=== PATIENT | female | born 1995 | race Caucasian/White ===

== ENCOUNTER 2021-04-10 12:24 | Outpatient (CLI) | payer OTHER, SELFPAY ==
--- NOTE | 2021-04-12 11:48 | WPDHOLTEREM ---
Holter/Event Monitor Holter/Event Monitor Date of procedure: 04/10/21 Holter/Event Procedure: 24 Hr Holter Monitor Indications: Palpitations Conclusion: 1. 24 hour holter monitor on 04/10/21. 2. Underlying rhythm is sinus rhythm with sinus arrhythmia. HR range 39-182 bpm; average HR 88 bpm. 3. There are 583 premature supraventricular complexes and 79 supraventricular couplets. No supraventricular tachycardia. 4. There are 6 premature ventricular complexes and 2 ventricular couplets. No ventricular tachycardia. 5. No sinoatrial or atrioventricular blocks. No significant pauses greater than 2 seconds. 6. Patient reports symptoms of feeling weird , off , and heart felt heavy which demonstrate sinus rhythm, HR range 111-167 bpm.
== END 2021-04-10 12:25 | disposition home or self-care (01) ==
LOC: CHSCARD 12:30
PROVIDERS: PCP Family Medicine; Visit Provider Nurse Practitioner
DX: R00.2 Palpitations (principal)
CPT/HCPCS: 93225; 93226

== ENCOUNTER 2021-05-14 21:56 | Emergency (ER) | payer OTHER, SELFPAY ==
--- NOTE | ~2021-05-14 | CT_ITS ---
EXAMINATION: CT abdomen pelvis w con EXAM DATE: 05/15/2021 01:37 INDICATION: bilateral flank pain, hx of UTI . TECHNIQUE: Spiral CT of the abdomen and pelvis was performed following intravenous injection of 100 m L Omnipaque 350. Axial, coronal and sagittal images of the abdomen and pelvis were reviewed. The do se-length product (DLP) for this examination was 275.00 mGy-cm. The exposure was tailored according to patient size (auto mA exposure control), and iterative reconstruction (ASIR) was used as additiona l dose reduction technique. There is no prior study for comparison. FINDINGS: The liver, spleen, adrenal glands and pancreas are unremarkable. Gallbladder is unremarkab le. No biliary obstruction. Portal and splenic veins are patent. Kidneys enhance symmetrically. T here is no hydronephrosis. The uterus is unremarkable. The bladder is unremarkable. There is no retroperitoneal or pelvic lymphadenopathy. The appendix is normal. The stomach and small bowel are unremarkable. There is expected amount of c olonic stool. No free intraperitoneal gas. The heart is normal in size. There are no pericardial or pleural effusions. The lung bases are unremarkable. There are no osteoblastic or osteolytic les ions identified. 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 IMPRESSION: 1. No acute intra-abdominal findings. 2. L5 spondylolysis. Reviewed, dictated and finalized at location B.
[2021-05-14 22:21] VITALS: BP 123/81; PULSE 82; RESP 18; TEMP 36.6; O2SAT 100
[2021-05-14 23:00] LABS: Add Urine Microscopic? YES; Appearance Urine Clear (Clear); Bilirubin Urine Negative (Negative); Blood Urine Negative (Negative); Color Urine Yellow (Yellow); Glucose Urine UA Negative (Negative); Ketones Urine Negative (Negative); Leukocyte Esterase Ur 2+ LEU/UL (Negative); Mucus Urine Rare /lpf; Nitrate Urine Negative (Negative); Protein Urine Negative (Negative); Specific Grav Ur 1.017 (1.001-1.035); Squamous Epithelial Cell Urine Occasional /hpf (Few); Urobilinogen Urine Negative mg/dL (<2.0); WBC Urine 16-20 /hpf
[2021-05-14 23:37] VITALS: BP 129/93; PULSE 81; RESP 13; O2SAT 100
[2021-05-14 23:46] VITALS: BP 117/81; PULSE 72; RESP 16; O2SAT 100
[2021-05-15] VITALS (8 sets, daily range): BP systolic 104–119; BP diastolic 60–80; PULSE 65–85; RESP 15–21; O2SAT 100
--- NOTE | 2021-05-15 00:35 | ED.FEMALEGU ---
HPI - Female Genitourinary General Chief complaint: Urogenital-Female Stated complaint: [employer] issues - bacterial infection Time Seen by Provider: 05/15/21 00:34 Source: patient Mode of arrival: ambulatory Limitations: no limitations History of Present Illness HPI Narrative: Patient is a 26-year-old female with a history of recurrent urinary tract infections who presents for evaluation of dysuria, flank pain. Patient states that she has been on several different antibiotics over the course of 3 months, for which she has been referred to [facility]. Patient has yet to have her follow-up appointment after the urologist has canceled 3 times per the patient. Patient states that she continues to have dysuria, hematuria as well as a white substance in her urine. She reports some urinary frequency and bilateral flank pain which is greater on the left than on the right. Pain is dull, aching in nature. Patient denies fever or chills this evening. No nausea or vomiting. No vaginal bleeding or discharge. No history of sexually transmitted infection although she is sexually active. Patient states she has not had a CT scan at this point in her medical work-up, states that her primary care physician will no longer prescribe her any antibiotics and thus has referred her to urology. Due to increased pain in appearance of urine, patient was prompted to come to the emergency department. Related Data Home Medications Medication Instructions Recorded Confirmed lorazepam [Ativan] 0.5 mg PO DAILY PRN 05/14/21 05/14/21 Allergies Allergy/AdvReac Type Severity Reaction Status Date / Time No Known Allergies Allergy Unverified 05/14/21 23:37 Review of Systems Review of Systems: CONSTITUTIONAL: Denies fever, chills, or sweats. EYES: Denies visual changes, redness, or discharge. ENT: Denies rhinorrhea, congestion, sore throat, or otalgia. CARDIOVASCULAR: Denies chest pain, palpitations, or edema. RESPIRATORY: Denies cough or dyspnea. GASTROINTESTINAL: Reports lower abdominal pain without nausea or vomiting GENITOURINARY: Reports dysuria, hematuria SKIN: Denies rash or itching. MUSCULOSKELETAL: Reports bilateral flank pain, denies joint pain, or myalgia. NEUROLOGIC: Denies headache, numbness, or weakness. [facility] Past Medical History Medical History (Updated 05/15/21 @ 02:59 by Kaylie Alvarez MD) Urinary tract infection Social History Social History (Updated 05/15/21 @ 01:17 by Kaylie Alvarez MD) Alcohol intake: never Substance use: never Living arrangements: with family Gender identity (if verbalized by the patient): Female Exam Narrative: GENERAL: Awake, alert, conversant HEAD: Normocephalic, atraumatic. EYES: PERRLA and EOMI. ENT: Nares clear, no rhinorrhea or epistaxis. Mucous membranes moist. NECK: Supple. CHEST: No respiratory distress, breathing even and non labored HEART: Regular rate, sinus rhythm ABDOMEN:Non distended, no suprapubic tenderness on exam, bilateral CVA tenderness on exam EXTREMITIES: Normal range of motion. No edema. SKIN: Warm, dry, no rash. NEURO:No focal deficits. Alert and oriented x3 Course Vital Signs Vital signs: Vital Signs Temperature 36.6 C 05/14/21 22:21 Pulse Rate 82 05/14/21 22:21 Respiratory Rate 18 05/14/21 22:21 Blood Pressure 123/81 05/14/21 22:21 Pulse Oximetry 100 05/14/21 22:21 Temperature 36.6 C 05/14/21 22:21 Pulse Rate 81 05/15/21 02:16 Respiratory Rate 15 05/15/21 02:16 Blood Pressure 108/75 05/15/21 02:16 Pulse Oximetry 100 05/15/21 02:16 MDM - Female Genitourinary MDM Narrative Medical decision making narrative: Patient presenting for evaluation of dysuria, bilateral flank pain. At the time of assessment, ABCs are intact and vital signs are stable. Physical exam with mild suprapubic tenderness with flank tenderness on exam. Patient does not have any reported vaginal dis
[2021-05-15] MEDS: SODIUM CHLORIDE 0.9% IV 1,000 ML 999 ML IV CONT (00:56)
[2021-05-15] MEDS: ONDANSETRON INJ 4 MG/2 ML VIAL IV PUSH (00:57)
--- NOTE | 2021-05-15 01:26 | PC.NURSE ---
Pt to imaging at this time.
[2021-05-15 01:27] LABS: Basophils Absolute Auto 0.1 K/mm3 (0.0-0.1); Basophils Percent Auto 0.8 % (0.2-1.2); Eosinophils Absolute Auto 0.2 K/mm3 (0-0.3); Eosinophils Percent Auto 1.9 % (0-4.4); Hematocrit 41.5 % (37.0-47.0); Hemoglobin 13.4 g/dL (12.0-15.0); Immature Granulocyte Absolute 0.03 K/mm3 (0.00-0.031); Immature Granulocyte Percent A 0.3 % (0-0.5); Lymphocytes Absolute Auto 3.35 K/mm3 (0.9-3.2); Lymphocytes Percent Auto 33.9 % (18.3-44.2); Mean Corpuscular HGB Conc 32.3 g/dl (32-36); Mean Corpuscular Hemoglobin 28.9 pg (26-34); Mean Corpuscular Volume 89.4 fl (80-100); Mean Platelet Volume 9.8 fl (7.4-10.4); Monocytes Absolute Auto 0.6 K/mm3 (0.1-0.6); Monocytes Percent Auto 6.3 % (2.6-8.5); Neutrophils Absolute Auto 5.6 K/mm3 (1.3-6.7); Neutrophils Percent Auto 56.8 % (45.5-73.1); Platelet Count Result 296 k/mm3 (150-375); Red Blood Count 4.64 M/mm3 (4.2-5.4); Red Cell Distribution Width 13.9 % (11.5-14.5); White Blood Count 9.9 K/mm3 (4.5-10.0)
[2021-05-15 01:34] LABS: Estimated CRCL calculation 88 ml/min; Estimated Glomerular Filt Rate > 60
[2021-05-15 01:39] LABS: Alanine Aminotransferase 17 U/L (4-35); Albumin Level 4.3 g/dL (3.5-5.1); Alkaline Phosphatase 69 U/L (38-126); Anion Gap 9 mmol/L (8-16); Aspartate Amino Transferase 22 U/L (14-36); Bilirubin,Total 0.7 mg/dL (0.2-1.3); Blood Urea Nitrogen 11 mg/dL (7-17); Calcium 9.3 mg/dL (8.4-10.2); Carbon Dioxide 27 mmol/L (22-30); Chloride 103 mmol/L (98-107); Estimated CRCL calculation 88 ml/min; Estimated Glomerular Filt Rate > 60; Glucose 90 mg/dL (65-110); Potassium 3.2 mmol/L (3.4-5.0); Sodium 139 mmol/L (137-145)
[2021-05-15] MEDS: MORPHINE SULFATE (*CRX) 4 MG/ML INJ IV PUSH (02:08)
== END 2021-05-15 03:14 | disposition home or self-care (01) ==
PROVIDERS: Emergency Medicine; Emergency Provider Emergency Medicine; PCP Family Medicine
DX: N39.0 Urinary tract infection, site not specified (principal); Z87.440 Personal history of urinary (tract) infections
CPT/HCPCS: 36415; 74177; 80053; 81001; 81025; 85025; 87086; 96361; 96374; 96375; 99284; J2270; J2405; J7030; Q9967

== ENCOUNTER 2021-08-24 20:30 | Emergency (ER) | payer OTHER, SELFPAY ==
--- NOTE | ~2021-08-24 | US_ITS ---
EXAMINATION: US OB <=14 wk fetus w TV DATE: 08/25/2021 01:53 INDICATION: Vaginal bleeding during the first trimester TECHNIQUE: Real-time pelvic ultrasound utilizing both a transvaginal and transabdominal probe was pe rformed. The interpreting radiologist was not present for the study. COMPARISON: None. FINDINGS: The uterus measures 8.6 x 4.9 x 4.0 cm. The endometrial complex measures up to 9 mm in thickness. No evident endometrial fluid or gestational sac. The right ovary measures 3.4 x 2.9 x 2.2 cm. The left ovary measures 2.7 x 1.5 x 1.4 cm. And contains a 1.4 cm anechoic cyst/follicle. No other abnormal adnexal masses identified. There is no free fluid in the pelvis. IMPRESSION: 1. No evident endometrial fluid or gestational sac. In the setting of a positive beta hCG the differe ntial would include early, failed or ectopic although no abnormal adnexal masses are identi fied to more specifically suggest the latter. Reviewed, dictated and finalized at location . ICATION SUPPORT IMPRESSION: 1. No evident endometrial fluid or gestational sac. In the setting of a positiv e beta hCG the differential would include early, failed or ectopic al though no abnormal adnexal masses are identified to more specifically suggest t he latter.
[2021-08-24 20:58] VITALS: BP 129/71; PULSE 72; RESP 17; TEMP 36.7; O2SAT 100
[2021-08-25 00:12] VITALS: BP 115/73; PULSE 75; RESP 16; O2SAT 100
[2021-08-25 01:23] LABS: Basophils Absolute Auto 0.1 K/mm3 (0.0-0.1); Basophils Percent Auto 0.8 % (0.2-1.2); Eosinophils Absolute Auto 0.4 K/mm3 (0-0.3); Eosinophils Percent Auto 3.1 % (0-4.4); Hematocrit 42.3 % (37.0-47.0); Hemoglobin 13.9 g/dL (12.0-15.0); Immature Granulocyte Absolute 0.02 K/mm3 (0.00-0.031); Immature Granulocyte Percent A 0.2 % (0-0.5); Lymphocytes Absolute Auto 3.91 K/mm3 (0.9-3.2); Lymphocytes Percent Auto 33.8 % (18.3-44.2); Mean Corpuscular HGB Conc 32.9 g/dl (32-36); Mean Corpuscular Hemoglobin 29.3 pg (26-34); Mean Corpuscular Volume 89.2 fl (80-100); Mean Platelet Volume 9.2 fl (7.4-10.4); Monocytes Absolute Auto 0.8 K/mm3 (0.1-0.6); Monocytes Percent Auto 6.8 % (2.6-8.5); Neutrophils Absolute Auto 6.4 K/mm3 (1.3-6.7); Neutrophils Percent Auto 55.3 % (45.5-73.1); Platelet Count Result 342 k/mm3 (150-375); Red Blood Count 4.74 M/mm3 (4.2-5.4); Red Cell Distribution Width 13.4 % (11.5-14.5); White Blood Count 11.6 K/mm3 (4.5-10.0)
[2021-08-25 01:41] LABS: Alanine Aminotransferase 18 U/L (4-35); Albumin Level 4.3 g/dL (3.5-5.1); Alkaline Phosphatase 70 U/L (38-126); Anion Gap 1 mmol/L (8-16); Aspartate Amino Transferase 23 U/L (14-36); Bilirubin,Total 0.4 mg/dL (0.2-1.3); Blood Urea Nitrogen 11 mg/dL (7-17); Calcium 9.3 mg/dL (8.4-10.2); Carbon Dioxide 29 mmol/L (22-30); Chloride 104 mmol/L (98-107); Estimated CRCL calculation 88 ml/min; Estimated Glomerular Filt Rate > 60; Glucose 88 mg/dL (65-110); Potassium 3.8 mmol/L (3.4-5.0); Sodium 134 mmol/L (137-145)
[2021-08-25 02:22] LABS: Beta HCG Quantitative 88.97 mIU/ML
[2021-08-25 02:31] LABS: Add Urine Microscopic? YES; Appearance Urine Clear (Clear); Bilirubin Urine Negative (Negative); Blood Urine 2+ (Negative); Color Urine Yellow (Yellow); Glucose Urine UA Negative (Negative); Ketones Urine Negative (Negative); Leukocyte Esterase Ur Trace LEU/UL (Negative); Mucus Urine Rare /lpf; Nitrate Urine Negative (Negative); Protein Urine Negative (Negative); RBC Urine >75 /hpf (0-2); Specific Grav Ur 1.016 (1.001-1.035); Squamous Epithelial Cell Urine Occasional /hpf (Few); Urobilinogen Urine Negative mg/dL (<2.0); WBC Urine 21-30 /hpf
--- NOTE | 2021-08-25 02:40 | PC.NURSE ---
ERP DR MIRANDA AND SOO FITZPATRICK AT BEDSIDE FOR PELVIC EXAMINATION.
--- NOTE | 2021-08-25 02:42 | ED.FEMALEGU ---
HPI - Female Genitourinary General Chief complaint: Vaginal Bleeding Stated complaint: few weeks and bleeding Time Seen by Provider: 08/25/21 00:07 History of Present Illness HPI Narrative: Patient is a 26-year-old female who presents ER with vaginal bleeding. Patient is a G3, P1 who presents the ER with LMP of July 01/2021. Had a positive test last week. Began developing bleeding from her vagina prior to arrival. She reports she is soaked through 2 pads in the last 4 hours. She has not had a dating ultrasound. She has follow-up scheduled with a dairy equipment repairer in [place]. Related Data Home Medications Medication Instructions Recorded Confirmed lorazepam [Ativan] 0.5 mg PO DAILY PRN 05/14/21 05/14/21 Allergies Allergy/AdvReac Type Severity Reaction Status Date / Time amoxicillin AdvReac Hives Verified 08/25/21 00:16 Review of Systems Review of Systems: All systems reviewed & are unremarkable except as noted in HPI and below Constitutional: Constitutional: Denies chills and Denies fatigue Gastrointestinal: Gastrointestinal: Denies abdominal pain, Denies nausea and Denies vomiting Genitourinary: Genitourinary: Reports abnormal vaginal bleeding, Reports nocturia, Reports dysuria (Reports chronic UTI for which she takes antibiotics.) and Denies vaginal discharge Neurologic: Denies syncope, Denies focal weakness and Denies numbness PMFSH Past Medical History Medical History (Updated 08/25/21 @ 03:25 by Baldomero Zelaya MD) Urinary tract infection Surgical History Surgical History (Updated 08/25/21 @ 03:25 by Baldomero Zelaya MD) No pertinent past surgical history Social History Social History (Updated 05/15/21 @ 01:17 by Kaylie Alvarez MD) Alcohol intake: never Substance use: never Gender identity (if verbalized by the patient): Female Exam Narrative: GENERAL: Well-appearing, well-nourished, and in no acute distress. HEAD: Normocephalic, atraumatic. CHEST: Clear to auscultation. No respiratory distress. HEART: Regular rate and rhythm. Normal peripheral pulses. ABDOMEN: Soft, nontender, nondistended. Spine: Normal external genitalia, speculum exam with small amount of dark blood near the cervix. Cervix closed and nonerythematous/tender. No discharge noted. EXTREMITIES: Normal range of motion. No edema. SKIN: Warm, dry, no rash. NEURO: No focal deficits.Normal mood and affect. Course Course Emergency Course: Patient informed results. Discussed case with Dr. Dumont. Patient should follow-up in 2 days to have repeat blood work. She may also follow-up with her primary polymer specialist if she wishes. Discussed bleeding precautions with the patient. Blood type a positive and does not require RhoGam. Vital Signs Vital signs: Vital Signs Temperature 98.1 F 08/24/21 20:58 Pulse Rate 72 08/24/21 20:58 Respiratory Rate 17 08/24/21 20:58 Blood Pressure 129/71 08/24/21 20:58 Pulse Oximetry 100 08/24/21 20:58 Temperature 98.1 F 08/24/21 20:58 Pulse Rate 75 08/25/21 00:12 Respiratory Rate 16 08/25/21 00:12 Blood Pressure 115/73 08/25/21 00:12 Pulse Oximetry 100 08/25/21 00:12 MDM - Female Genitourinary Lab Data Result diagrams: 08/25/21 01:16 08/25/21 01:16 Labs: Lab Results 08/25/21 08/25/21 08/25/21 Range/Units 01:16 01:16 01:16 WBC 11.6 H (4.5-10.0) K/mm3 RBC 4.74 (4.2-5.4) M/mm3 Hgb 13.9 (12.0-15.0) g/dL Hct 42.3 (37.0-47.0) % MCV 89.2 (80-100) fl MCH 29.3 (26-34) pg MCHC 32.9 (32-36) g/dl RDW 13.4 (11.5-14.5) % Plt Count 342 (150-375) k/mm3 MPV 9.2 (7.4-10.4) fl Immature Gran % (Auto) 0.2 (0-0.5) % Neut % (Auto) 55.3 (45.5-73.1) % Lymph % (Auto) 33.8 (18.3-44.2) % [place] % (Auto) 6.8 (2.6-8.5) % Eos % (Auto) 3.1 (0-4.4) % Baso % (Auto) 0.8 (0.2-1.2) % Lymph # (Auto) 3.91 H (0.9-3.2) K/mm3 [place] # (A
[2021-08-25 03:54] VITALS: BP 116/87; PULSE 85; RESP 18; O2SAT 97
== END 2021-08-25 03:53 | disposition home or self-care (01) ==
PROVIDERS: Emergency Provider Emergency Medicine; PCP Family Medicine
DX: O20.0 Threatened abortion (principal); Z3A.01 Less than 8 weeks gestation of pregnancy; Z87.440 Personal history of urinary (tract) infections
CPT/HCPCS: 36415; 76801; 76817; 80053; 81001; 84702; 85025; 85461; 87086; 87088; 99284

== ENCOUNTER 2022-05-21 16:06 | Emergency (ER) | payer OTHER, SELFPAY ==
[2022-05-21 16:15] VITALS: BP 108/61; PULSE 95; RESP 18; O2SAT 98
[2022-05-21 16:18] VITALS: TEMP 36.7
[2022-05-21 16:30] VITALS: BP 108/61; PULSE 95; RESP 20; TEMP 36.6; O2SAT 98
--- NOTE | 2022-05-21 16:56 | ED.ABDPAIN ---
HPI - Abdominal Pain General Chief Complaint: Vaginal Bleeding Stated Complaint: 9 1/2 weeks and spotting Time Seen by Provider: 05/21/22 16:08 Source: patient and RN notes reviewed Mode of arrival: ambulatory Limitations: no limitations History of Present Illness MD elicited complaint: other (91/2 weeks with minimal vaginal spotting x today. ) Pertinent past history: other (prior mis-carriages.) Onset (ago): hour(s) (8) Pain Consistency: other (pain-free with no abdominal or uterine cramping) Location: pelvis Severity: mild Pain scale (0-10): 0 Radiation: none Migration to: no migration Exacerbating factors: nothing Relieving factors: nothing Associated symptoms: denies other symptoms Related Data Patient : Yes Home Medications Medication Instructions Recorded Confirmed lorazepam 0.5 mg tablet (Ativan) 0.5 mg PO DAILY PRN Anxiety 05/14/21 05/14/21 Allergies Allergy/AdvReac Type Severity Reaction Status Date / Time amoxicillin AdvReac Hives Verified 08/25/21 00:16 Review of Systems Review of Systems: All systems reviewed & are unremarkable except as noted in HPI and below Constitutional: Constitutional: Reports no additional constitutional complaints Eyes: Eyes: Reports no additional eye complaints ENT: Reports system reviewed and no additional complaints, except as documented Cardiovascular: Cardiovascular: Reports no additional cardiovascular complaints Respiratory: Respiratory: Reports no additional respiratory complaints Gastrointestinal: Gastrointestinal: Reports no additional gastrointestinal complaints Genitourinary: Genitourinary: Reports no additional female genitourinary complaints Comments: minimal vaginal spotting at 91/2 weeks . Musculoskeletal: Musculoskeletal: Reports no additional musculoskeletal complaints Integumentary/Breasts: Skin/Breast: Reports system reviewed and no additional complaints, except as docu Neurologic: Reports system reviewed and no additional complaints, except as documented Psychiatric: Psychiatric: Reports no additional psychiatric complaints Endocrine: Endocrine: Reports no additional endocrine complaints Hematologic/Lymphatic: Hematologic/Lymphatic: Reports no additional hematologic/lymphatic complaints Allergic/Immunologic: Allergic/Immunologic: Reports no additional allergic/immunologic complaints [facility] Past Medical History Medical History (Updated 05/21/22 @ 17:24 by Edel Ferrari MD) Threatened in first trimester Urinary tract infection Surgical History Surgical History (Updated 08/25/21 @ 03:25 by Baldomero Zelaya MD) No pertinent past surgical history Social History Social History (Updated 05/15/21 @ 01:17 by Kaylie Alvarez MD) Alcohol intake: never Substance use: never Gender identity (if verbalized by the patient): Female Exam Const: General: healthy appearing and no acute distress Nutritional Appearance: well nourished Orientation/consciousness: patient oriented x3 Limitations: no limitations HENMT: Head: normal to inspection Ears: external ears normal, TM's normal bilaterally and EAC's normal General nose exam: Normal external nose present and Normal nares present Face and sinus: normal facial exam and sinuses nontender Mouth: Yes Normal oral and palatal mucosa present and Yes moist mucous membranes Teeth and gingiva: dentition normal Throat: posterior oropharynx normal Eyes: Conjunctivae: conjunctivae normal Pupils: Equal, round and reactive pupils present EOM: EOMs intact bilaterally Neck: Neck: normal visual inspection, no lymphadenopathy and no meningeal signs Chest: Chest palpation & inspection: normal inspection of the chest Resp: Effort & Inspection: normal respiratory effort Auscultation: clear to auscultation bilaterally Cardio: Rate: regular rate Rhythm: regular rhythm GI: GI Palp: Yes Soft to palpation and No Tenderness to palpation presen
--- NOTE | 2022-05-21 18:48 | PC.NURSE ---
1655 pt went by POV with doctors order to radiology to U/S nurse spoke with house sup and aware of pt coming for U/S radiologist to call DR. Ferrari with results 1720 pt called from [facility] stating they refused to do ultrasound nurse called warehouse selector and she stated she would take care of it 1850 pt completed u/s and radiologist spoke with Dr Ferrari pt is to return back to ER for Discharge instructions
--- NOTE | 2022-05-21 19:21 | PC.NURSE ---
Report from Leny VANN, PT is supposed to return to [facility] for results and DC
--- NOTE | 2022-05-21 19:26 | PC.NURSE ---
Pt returned and placed in consult room
--- NOTE | 2022-05-21 19:37 | PC.NURSE ---
Pts OB, dr hrien hess attempted to be reached at [facility], call [facility], they are contacting the healthcare liaison, Dr pretty Sanchez
[2022-05-21 19:48] LABS: Add Urine Microscopic? YES; Appearance Urine Clear (Clear); Bilirubin Urine Negative (Negative); Blood Urine 3+ (Negative); Color Urine Light Yellow (Yellow); Glucose Urine UA Negative (Negative); Ketones Urine Negative (Negative); Leukocyte Esterase Ur Trace (Negative); Nitrate Urine Negative (Negative); Protein Urine Negative (Negative); Urobilinogen Urine 0.2 mg/dL (0.2-1.0)
[2022-05-21 19:57] LABS: Bacteria Urine Trace /hpf; Squamous Epithelial Cell Urine Few /hpf (Few); WBC Urine 0-3 /hpf (0-3)
[2022-05-21] MEDS: cefTRIAXone 1 GM, LIDOCAINE HCL 1% LOCAL INJ 2.1 ML IM (20:18)
[2022-05-21 20:21] VITALS: BP 111/74; PULSE 88; RESP 18; O2SAT 99
== END 2022-05-21 20:30 | disposition home or self-care (01) ==
PROVIDERS: Emergency Provider Emergency Medicine; PCP Family Medicine
DX: O20.0 Threatened abortion (principal)
CPT/HCPCS: 51701; 81001; 96372; 99283; J0696

== ENCOUNTER 2022-05-21 17:42 | Outpatient (CLI) | payer OTHER, SELFPAY ==
--- NOTE | ~2022-05-21 | US_ITS ---
EXAMINATION: US OB transvaginal INDICATION: PREGNACY VAGINAL BLEEDING TECHNIQUE: Sonography of the pelvis was performed by transabdominal and transvaginal techniques. COMPARISON: None. RESULT: Uterus: Orientation: Anteverted. 7.8 x 5.0 x 6.5 cm. Myometrium: homogeneous echogenicity. The cervi x is long and closed, measuring 3.9 cm. Gestation: - Intrauterine gestational sac: Single present, positioned somewhat low in the uterine body - Yolk sac: 0.34 cm. - Embryo: Single present. - [place] rump length: 0.95 cm, corresponding gestational age 7 weeks, 0 days. -Gestational heart rate: Absent. -Subgestational hematoma: Absent. Right ovary: 2.0 x 1.2 x 1.4 cm. Normal sonographic appearance with physiologic follicles. . Left ovary: 2.9 x 1.6 x 1.7 cm. Normal sonographic appearance with physiologic follicles. Simple cyst versus dominant follicle. Pelvis free fluid: None. IMPRESSION: Single, intrauterine gestation without heart motion, concerning for failure. Estimated Gestational Age: 7 weeks, 0 days by crown rump length. JOSSE by ultrasound 01/07/2023. Results reported telephonically to Dr. Ferrari by Dr. Doshi at 6:51 PM on 05/21/2022. Reviewed, dictated and finalized at location K. IMPRESSION: Single, intrauterine gestation without heart motion, concerning for pregn yvon failure. Estimated Gestational Age: 7 weeks, 0 days by crown rump length. JOSSE by ultras ound 01/07/2023. Results reported telephonically to Dr. Ferrari by Dr. Doshi at 6:51 PM on 2021.
== END 2022-05-21 17:43 | disposition home or self-care (01) ==
LOC: ANHIMG 17:48
PROVIDERS: PCP Family Medicine; Visit Provider Emergency Medicine
DX: O26.859 Spotting complicating pregnancy, unspecified trimester (principal); Z3A.00 Weeks of gestation of pregnancy not specified; Z3A.01 Less than 8 weeks gestation of pregnancy
CPT/HCPCS: 76817

== ENCOUNTER 2023-02-11 20:02 | Emergency (ER) | payer OTHER, SELFPAY ==
--- NOTE | ~2023-02-11 | CT_ITS ---
Noncontrast CT scan of the lumbar spine CLINICAL HISTORY: Back pain TECHNIQUE: Axial noncontrast imaging of the lumbar spine was performed. Sagittal and coronal reformat brenda images were constructed. Dose reduction technique was used on this scan by utilizing automated ex posure control and iterative reconstruction technique. The dose-length product (DLP) was 468.32 mGy-c m. FINDINGS: No acute fracture or dislocation seen. Bilateral chronic L5 pars interarticular is defects are present. No subluxation. Intervertebral disc spaces are relatively well preserved throughout the lumbar spine. There is probable minimal disc bulge at L4-L5. No other disc bulge or herniation evident. No spinal c anal stenosis or neural foraminal narrowing evident in the lumbar spine. Paravertebral soft tissues are unremarkable. Impression: Bilateral L5 pars intraarticular defects, without subluxation.2 Reviewed, dictated and finalized at [facility]. Impression: Bilateral L5 pars intraarticular defects, without subluxation.2
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
--- NOTE | 2023-02-11 20:45 | PC.NURSE ---
patient awake and alert, ambulatory to bathroom at this time.
[2023-02-11 20:46] VITALS: BP 136/96; PULSE 131; RESP 18; TEMP 37; O2SAT 98
[2023-02-11 21:10] LABS: Basophils Absolute Auto 0.04 K/mm3 (0.00-0.10); Basophils Percent Auto 0.2 % (0.0-1.0); Eosinophils Absolute Auto 0.01 K/mm3 (0.02-0.50); Eosinophils Percent Auto 0.1 % (1.0-6.0); Hematocrit 43.3 % (35.0-49.0); Hemoglobin 13.8 g/dL (12.0-15.0); Immature Granulocyte Absolute 0.08 K/mm3 (0.00-0.00); Immature Granulocyte Percent A 0.5 % (0.0-0.0); Lymphocytes Absolute Auto 1.08 K/mm3 (1.10-4.50); Lymphocytes Percent Auto 6.6 % (18.0-42.0); Mean Corpuscular HGB Conc 31.9 g/dL (32.0-36.0); Mean Corpuscular Hemoglobin 28.9 pg (27.0-31.0); Mean Corpuscular Volume 90.6 fL (78.0-102.0); Mean Platelet Volume 9.1 fl (9.2-11.8); Monocytes Absolute Auto 0.09 K/mm3 (0.10-0.90); Monocytes Percent Auto 0.5 % (2.0-11.0); Neutrophils Absolute Auto 15.1 K/mm3 (1.7-7.2); Neutrophils Percent Auto 92.1 % (50.0-70.0); Platelet Count Result 353 K/mm3 (150-420); Red Blood Count 4.78 M/mm3 (4.20-5.40); Red Cell Distribution Width 14.5 % (11.6-14.4); White Blood Count 16.4 K/mm3 (4.8-10.8)
[2023-02-11 21:11] LABS: Add Urine Microscopic? NO; Appearance Urine Slightly Cloudy (Clear); Bilirubin Urine Negative (Negative); Blood Urine Negative (Negative); Color Urine Light Yellow (Yellow); Glucose Urine UA Negative (Negative); Ketones Urine Negative (Negative); Leukocyte Esterase Ur Negative LEU/UL (Negative); Nitrate Urine Negative (Negative); Protein Urine Negative (Negative)
[2023-02-11 21:21] LABS: Pregnancy On Board Control Positive; Urine Pregnancy Test Negative
[2023-02-11 21:24] LABS: Alanine Aminotransferase 21 U/L (14-59); Albumin Level 3.5 g/dL (3.4-5.0); Alkaline Phosphatase 95 U/L (46-116); Anion Gap 8 mmol/L (8-16); Aspartate Amino Transferase 15 U/L (15-37); Bilirubin,Total 0.2 mg/dL (0.00-1.00); Blood Urea Nitrogen 12 mg/dL (7-18); Calcium 9.1 mg/dL (8.5-10.1); Carbon Dioxide 28 mmol/L (21-32); Chloride 103 mmol/L (98-108); Estimated CRCL calculation 82 ml/min; Estimated Glomerular Filt Rate > 60; Glucose 111 mg/dL (70-99); Lipase 27 U/L (16-77); Osmolality Calculated 288 mOsm/kg (285-295); Potassium 4.2 mmol/L (3.5-5.1); Sodium 139 mmol/L (136-145); Total Protein 7.2 g/dL (6.4-8.2)
[2023-02-11 21:26] LABS: Lactic Acid Reflex 1.6 mmol/L (0.4-2.0)
--- NOTE | 2023-02-11 21:57 | PC.NURSE ---
patient awake and alert, given warm blanket to put on her low back. awaiting results and plan. no further needs.
[2023-02-11 22:51] VITALS: BP 130/96; PULSE 93; RESP 18; TEMP 37.6; O2SAT 97
== END 2023-02-11 22:53 | disposition home or self-care (01) ==
PROVIDERS: Emergency Provider Internal Medicine Critical Care Medicine; PCP Family Medicine
DX: M54.41 Lumbago with sciatica, right side (principal)
CPT/HCPCS: 36415; 72131; 80053; 81003; 81025; 83605; 83690; 85025; 99284

== ENCOUNTER 2023-02-23 13:57 | Outpatient (RCR) | payer OTHER, SELFPAY ==
--- NOTE | 2023-02-23 16:15 | OPREHPOC ---
Outpatient Therapy Plan of Care This is a Multidisciplinary Plan of Care that may contain components documented by all disciplines (PT, OT, and ST.) PT Problem 1 PT Problem #1 Knowledge Deficit PT Goal 1 Goal Patient to demonstrate independence with HEP Target Visit 12 PT Problem 2 PT Problem #2 Pain PT Goal 1 Goal 1. Patient to report highest pain at 2/10 2. Patient to report no sleep disturbance due to pain Target Visit 12 PT Problem 3 PT Problem #3 Impaired Functional Mobil PT Goal 1 Goal 1. Patient to report ability to work >4 hours without stopping due to pain 2. Patient to report ability to complete house hold tasks without increase in pain Target Visit 12 PT Problem 4 PT Problem #4 Impaired Strength PT Goal 1 Goal Patient to display 5/5 B LE strength in order to ambulation prolonged distances. Target Visit 12
--- NOTE | 2023-02-23 16:15 | PTOPEVAL1 ---
Assessment and note entered by Eva Tidwell DPT Evaluation Information Assessment Status Evaluation Diagnosis low back pain Onset 02/12/23 Subjective Information Patient reports she has had back pain for the last 8 months but pain has gotten worse over the last month. Patient reports pain radiates down the R LE into the foot. Patient reports that she has difficulty with laying down, standing longer than 30 minutes, and completing house hold tasks. She reports she went to the chiropractor for 3 months with only short term relief. 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 Reported Pain Level Pain Score 7: Self Report Assessment PT Clinical Summary Patient is 27 year old female who presents to PT with low back pain with radiating pain to L LE. Patient demonstrates decreased B LE flexibility, decreased L LE strength and impaired posture limiting her ability to sleep, work and complete house hold tasks. She would benefit from skilled PT to address impairments and return to PLOF. Plan of Care Interventions Electrical Stimulation,Gait Training,Hot Pack/Cold Pack,Manual Therapy,Mechanical Traction,Neuro Re- education,Patient/Caregiver Educati,Therapeutic Activities,Therapeutic Exercise PT Services Indicated Yes Treatment Frequency and 2x weekly for 12 visits Duration These treatments will address the objective and functional deficits as defined above. The patient will be advanced safely and appropriately in order for the patient to progress towards his/her prior level of function. Additional exercises will be introduced and as well as a comprehensive home exercise program upon discharge, if needed, ?to ensure carryover of functional gains achieved in the clinic. This treatment plan has been reviewed and agreement upon by the patient.
--- NOTE | 2023-04-07 14:01 | OPREHPOC ---
Outpatient Therapy Plan of Care This is a Multidisciplinary Plan of Care that may contain components documented by all disciplines (PT, OT, and ST.) PT Problem 1 PT Problem #1 Knowledge Deficit PT Goal 1 Goal Patient to demonstrate independence with HEP Target Visit 12 Comment continue PT Problem 2 PT Problem #2 Pain PT Goal 1 Goal 1. Patient to report highest pain at 2/10 2. Patient to report no sleep disturbance due to pain Target Visit 12 Comment continue PT Problem 3 PT Problem #3 Impaired Functional Mobil PT Goal 1 Goal 1. Patient to report ability to work >4 hours without stopping due to pain 2. Patient to report ability to complete house hold tasks without increase in pain Target Visit 12 Comment continue PT Problem 4 PT Problem #4 Impaired Strength PT Goal 1 Goal Patient to display 5/5 B LE strength in order to ambulation prolonged distances. Target Visit 12 Comment continue
--- NOTE | 2023-04-07 14:01 | PTOPPROGNS ---
Assessment and note entered by Eva Tidwell DPT Evaluation Information Assessment Status Progress Diagnosis low back pain Onset 02/12/23 Subjective Information Patient reports after PT she feels like she has more mobility but pain with standing is about the same. She reports last treatment she felt relief with long axis distraction. Assessment PT Clinical Summary Patient has been seen for 10 visits of skilled PT. Patient has increased L LE strength and lumbar ROM and reports increased mobiity. She continues to have pain and difficulty with standing for prolonged periods of time for house hold and works tasks. She would benefit from continued skilled PT to address remaining impairments and return to PLOF. Plan of Care Interventions Electrical Stimulation,Gait Training,Hot Pack/Cold Pack,Manual Therapy,Mechanical Traction,Neuro Re- education,Patient/Caregiver Educati,Therapeutic Activities,Therapeutic Exercise PT Services Indicated Yes Treatment Frequency and continue with remaining 2 visits Duration These treatments will address the objective and functional deficits as defined above. The patient will be advanced safely and appropriately in order for the patient to progress towards his/her prior level of function. Additional exercises will be introduced and as well as a comprehensive home exercise program upon discharge, if needed, ?to ensure carryover of functional gains achieved in the clinic. This treatment plan has been reviewed and agreement upon by the patient.
--- NOTE | 2023-04-16 14:31 | PTOPDC ---
Assessment and note entered by Tammi Mckinley, PT Evaluation Information Assessment Status Discharge Diagnosis low back pain Onset 02/12/23 Subjective Information Jessica Dey reports she went to her primary doctor yesterday and was told she will most likely need surgery. She was told to finish her last PT session then a MRI will be scheduled. She is noting no overall change in pain but does have increased mobility and less stiffness. 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 Reported Pain Level Pain Score 7: Self Report Assessment PT Clinical Summary Jessica Dey has completed 12 skilled PT visits for low back pain. She is reporting no overall change in pain but does have more mobility and less stiffness. She continues to have difficulty with prolonged standing and walking as well as lifting which causes her to have difficulty with household and work tasks. She objectively demonstrates improved lumbar ROM however, lumbar AROM remains painful and limited into extension. She also presents with weakness in bilateral LE myotomes from L3-S1. She will be discharged from skilled PT this date. Plan of Care PT Services Indicated No
== END 2023-04-16 16:33 | disposition home or self-care (01) ==
LOC: CHSPT 13:57
PROVIDERS: Visit Provider Nurse Practitioner Family
DX: M43.06 Spondylolysis, lumbar region (principal)
CPT/HCPCS: 97012; 97014; 97110; 97140; 97150; 97161; G0283

== ENCOUNTER 2023-03-04 09:52 | Outpatient (CLI) | payer OTHER, SELFPAY ==
--- NOTE | ~2023-03-04 | XR_ITS ---
Lumbosacral Spine: AP and lateral views Clinical History: Pain Findings: The normal lordotic curve is maintained. The vertebral bodies and posterior elements are i ntact. The intervertebral disc spaces are preserved. The sacroiliac joints are normally outlined. Impression: No significant abnormality. Reviewed, dictated and finalized at [facility]. Impression: No significant abnormality.
--- NOTE | ~2023-03-04 | XR_ITS ---
Thoracic spine: Clinical Indication: Back pain AP and lateral views were performed. No fracture is seen. There is normal alignment of the vertebrae. The intervertebral disc spaces appe ar normal. Paravertebral soft tissues appear normal. Impression: No significant abnormalities noted. Reviewed, dictated and finalized at [facility]. Impression: No significant abnormalities noted.
--- NOTE | ~2023-03-04 | XR_ITS ---
AP and lateral views of the right hip Clinical history: Pain Findings: No acute fracture or dislocation is seen. Osseous alignment is anatomic. Bilateral hip and SI joint spaces are preserved. Soft tissues are unremarkable. Impression: No significant abnormality is seen. Reviewed, dictated and finalized at location . Impression: No significant abnormality is seen.
== END 2023-03-04 09:53 | disposition home or self-care (01) ==
LOC: CHSIMG 09:54
PROVIDERS: PCP Nurse Practitioner Family; Visit Provider Nurse Practitioner Family
DX: G89.29 Other chronic pain (principal); G95.9 Disease of spinal cord, unspecified; M54.50 Low back pain, unspecified; M47.14 Other spondylosis with myelopathy, thoracic region
CPT/HCPCS: 72072; 72100; 73502

== ENCOUNTER 2023-04-25 12:45 | Emergency (ER) | payer OTHER, SELFPAY ==
--- NOTE | ~2023-04-25 | XR_ITS ---
XR ankle RT min 3V DATE: 04/25/2023 13:42 INDICATION: Lateral ankle pain and swelling following a fall today TECHNIQUE: 4 views COMPARISON: None FINDINGS: There is mild lateral soft tissue swelling. No fracture or dislocation of the ankle or disr uption of the ankle mortise is detected. No periosteal reaction or bone destruction. IMPRESSION: Mild lateral soft tissue swelling; no fracture or dislocation Reviewed, dictated and finalized at location A.
--- NOTE | ~2023-04-25 | XR_ITS ---
XR lumbar spine 2-3V DATE: 04/25/2023 13:44 INDICATION: Midline and right lumbar pain following a fall. Chronic back pain. TECHNIQUE: AP, lateral, coned lateral lumbosacral views COMPARISON: 03/04/2023 lumbar spine FINDINGS: Normal alignment of the lumbar spine. No fracture or bone destruction or spondylolisthesis. The lumbar pedicles are intact. Lumbar and lumbosacral interspaces are well preserved. The sacroilia c joints appear normal. IMPRESSION: Negative Reviewed, dictated and finalized at location A. IMPRESSION: Negative
[2023-04-25 12:45] VITALS: BP 126/84; PULSE 74; RESP 18; TEMP 37.1; O2SAT 100
[2023-04-25 12:56] VITALS: BP 126/84; PULSE 74; RESP 18; TEMP 37.1; O2SAT 100
[2023-04-25 13:16] LABS: Pregnancy On Board Control Positive; Urine Pregnancy Test Negative
[2023-04-25] MEDS: KETOROLAC (*BKC) 60 MG/2 ML VIAL IM (13:19)
--- NOTE | 2023-04-25 13:27 | ED.FALL ---
HPI - Fall General Chief Complaint: Fall Stated Complaint: ankle pain Time Seen by Provider: 04/25/23 12:57 Source: patient Mode of arrival: ambulatory Limitations: no limitations History of Present Illness HPI Narrative: this is 27-year-old female with a history of chronic back pain presents after she sits was getting out of her truck and slipped and fell to the ground injuring her right ankle the lateral aspect has swelling and tenderness with decreased range of motion secondary to pain and swelling has some also injured her lower back there is pain and tenderness with palpation, there is no numbness or tingling has some good range of motion in her lower extremities there is tenderness in her lower back in the right paravertebral area with palpation no neurological deficits. Care MD complaint: fall Onset (ago): hour(s) Fall from: standing Fall witnessed: yes, by family Place fall occurred: street Loss of consciousness: none Severity: moderate Severity scale (1-10): 7 Related Data Allergies Allergy/AdvReac Type Severity Reaction Status Date / Time amoxicillin AdvReac Hives Verified 04/25/23 12:55 Review of Systems Review of Systems: All systems reviewed & are unremarkable except as noted in HPI and below PMFSH Past Medical History Medical History Chronic low back pain History of recurrent miscarriages Urinary tract infection Surgical History Surgical History No pertinent past surgical history Social History Social History Smoking status: Former smoker (marijuana, had helped with mental health. Doesn't smoke at this time. ) Alcohol intake: never Substance use: never Living arrangements: with family Gender identity (if verbalized by the patient): Female Exam Const: General: healthy appearing Nutritional Appearance: well nourished Limitations: no limitations Eyes: Pupils: Equal, round and reactive pupils present Neck: Neck: normal visual inspection Chest: Chest palpation & inspection: normal inspection of the chest Resp: Effort & Inspection: normal respiratory effort Auscultation: clear to auscultation bilaterally Cardio: Rate: regular rate Rhythm: regular rhythm GI: Auscultation: normal bowel sounds Back/Spine/Pelvis: Back: no CVA tenderness Skin: General skin exam: normal color Rashes: no rashes Neuro: General: patient oriented x3, moves all extremities, no meningeal signs, no focal motor deficits and CN's II-XI intact bilaterally Extrem: Other: right lateral ankle pain and swelling with some low back pain L4 right paravertebral tenderness with palpation Psych: Mental Status: mental status grossly normal Affect: normal affect Course Course Emergency Course: x-rays reviewed with patient juan wrap was applied to right ankle no acute fractures. Vital Signs Vital signs: Vital Signs Temperature 37.1 C 04/25/23 12:45 Pulse Rate 74 04/25/23 12:45 Respiratory Rate 18 04/25/23 12:45 Blood Pressure 126/84 04/25/23 12:45 Pulse Oximetry 100 04/25/23 12:45 Oxygen Delivery Room Air 04/25/23 12:45 Temperature 37.1 C 04/25/23 12:56 Pulse Rate 74 04/25/23 12:56 Respiratory Rate 18 04/25/23 12:56 Blood Pressure 126/84 04/25/23 12:56 Pulse Oximetry 100 04/25/23 12:56 Oxygen Delivery Room Air 04/25/23 12:56 MDM - Fall Lab Data Labs: Lab Results 04/25/23 Range/Units 13:05 Urine Test Negative Critical Care Time Critical Care Time Critical Care Time: No Discharge Plan Discharge Clinical Impression: Ankle sprain Qualifiers: Encounter type: initial encounter Involved ligament of ankle: unspecified ligament Laterality: right Qualified Code(s): S93.401A - Sprain of unspecified ligament of right ankle, initial encounter Low back stra
[2023-04-25 14:03] VITALS: BP 118/75; PULSE 84; RESP 16; TEMP 36.6; O2SAT 99
== END 2023-04-25 14:03 | disposition home or self-care (01) ==
PROVIDERS: Emergency Provider Emergency Medicine; PCP Nurse Practitioner Family
DX: S93.401A Sprain of unspecified ligament of right ankle, initial encounter (principal); S39.012A Strain of muscle, fascia and tendon of lower back, initial encounter; W01.0XXA Fall on same level from slipping, tripping and stumbling without subsequent striking against object, initial encounter
CPT/HCPCS: 72100; 73610; 81025; 96372; 99284; J1885

== ENCOUNTER 2023-05-07 07:45 | Outpatient (CLI) | payer OTHER, SELFPAY ==
--- NOTE | ~2023-05-07 | MR_ITS ---
MRI of the lumbar spine Clinical History: Back pain Technique: Axial T2-weighted images, and sagittal T1-weighted, T2-weighted, and T2 fat-sat images wer e acquired. Findings: There is no fracture or subluxation of the lumbar spine. Vertebral bodies maintain normal h eight and alignment. No bone marrow signal abnormality seen. There is no significant disc bulge or herniation at any level. There are mild facet joint degenerativ e changes in lumbar spine. No spinal canal stenosis or neural foraminal narrowing in the lumbar spine . Paravertebral soft tissues are unremarkable. Impression: Mild facet joint degenerative changes, otherwise unremarkable exam. Reviewed, dictated and finalized at location . Impression: Mild facet joint degenerative changes, otherwise unremarkable exam.
--- NOTE | ~2023-05-07 | CT_ITS ---
EXAMINATION: CT lumbar spine wo con DATE: 05/07/2023 08:40 INDICATION: Low back pain radiating to the left. TECHNIQUE: Computed tomography (CT) of the lumbar spine was performed without intravenous contrast. A utomated exposure control and iterative reconstruction technique were employed. The dose-length produ ct was 518.43 mGy-cm. COMPARISON: Lumbar spine CT 02/11/2013 FINDINGS: There is a 3 mm stone in right kidney. There is 5 degrees levocurvature of lumbar spine. Th ere are chronic bilateral L5 pars defects. Vertebral body heights are normal. Intervertebral disc hei ghts are normal. The following disc levels are specifically discussed: L1-L2: There is a central protrusion. There is mild bilateral facet joint osteoarthritis. There is no neural foraminal stenosis. There is mild central canal stenosis. L2-L3: The disc is mildly bulging. There is mild bilateral facet joint osteoarthritis. There is mild right neural foraminal stenosis. There is mild central canal stenosis. L3-L4: The disc is bulging. There is mild right facet joint osteoarthritis. There is mild bilateral n eural foraminal stenosis. There is mild central canal stenosis. L4-L5: The disc is bulging. There is mild bilateral facet joint osteoarthritis. There is mild bilater al neural foraminal stenosis. There is mild central canal stenosis. L5-S1: The disc is bulging. There is mild bilateral facet joint osteoarthritis. There is mild bilater al neural foraminal stenosis. There is mild central canal stenosis. IMPRESSION: 1. Chronic bilateral L5 pars defects. 2. Mild lumbar spondylosis. Reviewed, dictated and finalized at location E.
== END 2023-05-07 07:46 | disposition home or self-care (01) ==
LOC: CHSIMG 07:48
PROVIDERS: PCP Nurse Practitioner Family
DX: M54.50 Low back pain, unspecified (principal); M43.06 Spondylolysis, lumbar region; M53.86 Other specified dorsopathies, lumbar region
CPT/HCPCS: 72131; 72148

== ENCOUNTER 2023-05-27 10:03 | Outpatient (CLI) | payer OTHER, SELFPAY ==
--- NOTE | ~2023-05-27 | XR_ITS ---
EXAMINATION: XR ankle RT min 3V, [id number] DATE: 05/27/2023 10:30 INDICATION: Right foot and ankle pain and limited range of motion post fall one month prior TECHNIQUE: 1. Anteroposterior, mortise, additional oblique and lateral view of the right ankle were obtained. 2. Dorsoplantar, two oblique and lateral views of the right foot were obtained. COMPARISON: None. FINDINGS: Minimally distracted likely avulsion fracture along the medial margin of the distal tip of the calcan eus. Bone alignment is otherwise normal. No other fractures identified at the right foot or ankle. Lyndsey int spaces are normal. Soft tissue swelling about the lateral malleolus. No ankle joint effusion. IMPRESSION: 1. Small minimally distracted likely avulsion fracture at the distal tip of the lateral malleolus. Reviewed, dictated and finalized at location A. IMPRESSION: 1. Small minimally distracted likely avulsion fracture at the distal tip of the lateral malleolus.
== END 2023-05-27 10:04 | disposition home or self-care (01) ==
LOC: CHSIMG 10:05
PROVIDERS: PCP Nurse Practitioner Family; Visit Provider Nurse Practitioner Family
DX: M79.671 Pain in right foot (principal)
CPT/HCPCS: 73610; 73630

== ENCOUNTER 2023-08-09 09:51 | Outpatient (CLI) | payer OTHER, SELFPAY ==
--- NOTE | ~2023-08-09 | MR_ITS ---
MRI of the right ankle Clinical history: Fracture, pain Technique: Coronal proton-density and proton-density fat-sat images, axial proton-density and proton- density fat-sat images, and sagittal proton-density and proton-density fat-sat images were acquired. Findings: Syndesmotic ligaments are intact. Anterior and posterior talofibular ligaments, and calcane ofibular ligament are intact. Deltoid ligament is intact. Medial flexor tendons, peroneal tendons, anterior extensor tendons, and Achilles tendon are intact. There is probable small avulsion fracture from the distal tip of the lateral malleolus. No other frac ture or dislocation seen. No osteochondral lesion of the talar dome. Remaining bone marrow signals an d joint spaces are unremarkable. No joint effusion evident. Plantar fascia intact. No edema like signal in the sinus Tarsi. No mass lesion or fluid collection ev ident. Impression: Probable small avulsion fracture from the distal tip of the lateral malleolus. No ligamentous injury evident. Reviewed, dictated and finalized at location . 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 No ligamentous injury evident.
== END 2023-08-09 09:52 | disposition home or self-care (01) ==
PROVIDERS: PCP Nurse Practitioner Family; Visit Provider Orthopaedic Surgery
DX: S82.831A Other fracture of upper and lower end of right fibula, initial encounter for closed fracture (principal); S93.401A Sprain of unspecified ligament of right ankle, initial encounter; X58.XXXA Exposure to other specified factors, initial encounter
CPT/HCPCS: 73721

== ENCOUNTER 2023-12-10 13:20 | Emergency (ER) | payer OTHER, SELFPAY ==
--- NOTE | ~2023-12-10 | XR_ITS ---
EXAMINATION: XR ankle RT min 3V DATE: 12/10/2023 13:44 INDICATION: Right ankle injury. TECHNIQUE: 4 views of right ankle were obtained. COMPARISON: Right ankle radiographs 07/08/2023, 04/25/2023 FINDINGS: There is an old avulsion fracture of anteroinferior lateral malleolus with nonunion. Joint spaces are normal. There is ankle soft tissue swelling. IMPRESSION: 1. 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 Reviewed, dictated and finalized at location A.
[2023-12-10 13:29] VITALS: BP 145/90; PULSE 101; RESP 20; TEMP 36.6; O2SAT 98
[2023-12-10] MEDS: KETOROLAC (*BKC) 60 MG/2 ML VIAL IM (13:42)
--- NOTE | 2023-12-10 14:11 | ED.LOWEXIN ---
HPI - Extremity Injury (Lower) General Chief Complaint: Extremity Injury, Lower Stated Complaint: RIGHT ANKLE INJURY Time Seen by Provider: 12/10/23 13:28 Source: patient Mode of arrival: ambulatory Limitations: no limitations History of Present Illness HPI Narrative: this is a 28-year-old female that presents with right ankle pain with swelling has decreased range of motion secondary to swelling and pain occurred earlier this morning after she tripped on stairs otherwise no other injuries has a good pedal pulse on the right no numbness or tingling. complaint: ankle injury Onset (ago): hour(s) Injury: Right: ankle ( pain and swelling) Related Data Allergies Allergy/AdvReac Type Severity Reaction Status Date / Time amoxicillin AdvReac Hives Verified 12/10/23 13:31 Review of Systems Review of Systems: All systems reviewed & are unremarkable except as noted in HPI and below PMFSH Past Medical History Medical History Chronic low back pain History of recurrent miscarriages Urinary tract infection Surgical History Surgical History No pertinent past surgical history Family History Family History Father , Passed 05/2023 from Stage 3 lung cancer Lung cancer Social History Social History Smoking status: Former smoker (marijuana, had helped with mental health. Doesn't smoke at this time. ) Alcohol intake: never Substance use: never Lack of Transportation: No Lack of Food: Never True Current Housing: I Have Housing Concerned About Future Housing: YES Difficulty Paying Gas/Electric Bills: YES Difficulty Paying for Meds: No Currently Unemployed: YES Education: High School Diploma/GED Difficulty w/ Childcare or Family Care: No Living arrangements: with family Gender identity (if verbalized by the patient): Female Exam Const: General: healthy appearing and no acute distress Nutritional Appearance: well nourished Orientation/consciousness: patient oriented x3 Limitations: no limitations Chest: Chest palpation & inspection: normal inspection of the chest Resp: Effort & Inspection: normal respiratory effort Auscultation: clear to auscultation bilaterally Cardio: Rate: regular rate Rhythm: regular rhythm GI: GI Palp: Yes Soft to palpation Auscultation: normal bowel sounds Skin: General skin exam: normal color Rashes: no rashes Neuro: General: patient oriented x3, moves all extremities and no meningeal signs Extrem: Other: Swelling and tenderness with movement and palpation the right ankle Course Course Emergency Course: patient received a dose of 60mg Toradol and pain level has improved Adonis wrap applied x-ray performed shows no acute ankle fractures. Vital Signs Vital signs: Vital Signs Temperature 36.6 C 12/10/23 13:29 Pulse Rate 101 H 12/10/23 13:29 Respiratory Rate 20 12/10/23 13:29 Blood Pressure 145/90 H 12/10/23 13:29 Pulse Oximetry 98 12/10/23 13:29 Oxygen Delivery Room Air 12/10/23 13:29 Temperature 36.6 C 12/10/23 13:29 Pulse Rate 101 H 12/10/23 13:29 Respiratory Rate 20 12/10/23 13:29 Blood Pressure 145/90 H 12/10/23 13:29 Pulse Oximetry 98 12/10/23 13:29 Oxygen Delivery Room Air 12/10/23 13:29 Critical Care Time Critical Care Time Critical Care Time: No Discharge Plan Discharge Clinical Impression: Ankle sprain and strain Patient Disposition: Home, Self-Care Condition: Stable Instructions: Antibiotic Form, Ankle Sprain (ED) Additional Instructions: advised continue Adonis wrap can take Tylenol or Motrin as needed, take medicine as prescribed and follow with primary if symptoms persist or worsen. Prescriptions: New tramadol 50 mg tablet 50 mg PO Q6H RI
[2023-12-10 14:21] VITALS: BP 118/72; PULSE 88; RESP 16; O2SAT 99
== END 2023-12-10 14:21 | disposition home or self-care (01) ==
PROVIDERS: Emergency Provider Emergency Medicine; PCP Nurse Practitioner Family
DX: S93.401A Sprain of unspecified ligament of right ankle, initial encounter (principal); W18.49XA Other slipping, tripping and stumbling without falling, initial encounter
CPT/HCPCS: 73610; 96372; 99283; J1885

== ENCOUNTER 2024-03-15 06:40 | Day surgery (SDC) | payer OTHER, SELFPAY ==
[2024-03-08 14:00] VITALS: BMI 32.0
--- NOTE | ~2024-03-15 | XR_ITS ---
EXAMINATION: XR fluoroscopy no charge DATE: 03/15/2024 8:25 CDT INDICATION: MADISON SI JT INJ . TECHNIQUE: 6 fluoroscopic images of the SI joints were obtained during bilateral SI joint injection, performed by Cheng Harman MD. I was not present during the procedure. Fluoroscopy exposure time w as 16.7 seconds. Air Kerma 5.51 mGy. COMPARISON: None FINDINGS/IMPRESSION: Fluoroscopic documentation of bilateral SI joint injection. Please refer to the operative note for co mplete procedural details . Reviewed, dictated and finalized at location K.
--- NOTE | 2024-03-15 06:07 | PM.HPGS ---
History of Present Illness History of Present Illness Consent: Risks, benefits, and alternatives have been discussed and questions answered. Patient agrees to proceed with procedure. Chief complaint: Bilateral Sacroiliitis, chronic low back pain Narrative: Jessica Dey is a 28 year old female with chronic, recalcitrant and disabling bilateral sacral back pain secondary to sacroiliitis/ sacral and sacrococcygeal spondyloarthropathy with failure to respond to aggressive conservative measures including PT, oral and topical analgesics, opioid and nonopioid analgesics, rest, time and activity/behavioral modification over the past 1-2 years who presents for therapeutic bilateral intra-articular sacroiliac joint steroid injections under fluoroscopic guidance and with contrast control. Review of Systems Review of Systems: Patient denies any new infectious, allergic, cardiopulmonary, neurologic or constitutional symptoms or changes in activity tolerance or exercise capacity including new or progressive SOB/CAMPA, peripheral edema, productive cough, dysuria, nausea/vomiting, diarrhea, weight change, fevers/chills/night sweats, new or progressive neurologic deficit, cognitive or mood changes since last seen, except as documented in the HPI. All systems reviewed & are unremarkable except as noted in HPI and below PMFSH Past Medical History Medical History Chronic low back pain History of recurrent miscarriages Urinary tract infection Surgical History Surgical History No pertinent past surgical history Family History Family History Father , Passed 05/2023 from Stage 3 lung cancer Lung cancer Social History Social History Smoking status: Never smoker Second hand tobacco smoke exposure: Yes Alcohol intake: never Substance use: current Substance use type: marijuana Other substance usage details: Daily Lack of Transportation: No Lack of Food: Never True Current Housing: I Have Housing Concerned About Future Housing: YES Difficulty Paying Gas/Electric Bills: YES Difficulty Paying for Meds: No Currently Unemployed: YES Education: High School Diploma/GED Difficulty w/ Childcare or Family Care: No Living arrangements: with family Gender identity (if verbalized by the patient): Female Spiritual care concerns: No Meds Home Medications and Allergies Home Medications Medication Instructions Recorded Confirmed Type No Home Medications 03/08/24 03/08/24 History Allergies Allergy/AdvReac Type Severity Reaction Status Date / Time amoxicillin AdvReac Hives Verified 03/08/24 13:53 Exam Narrative: The patient's physical exam is essentially unchanged from prior examination on 01/05/2024. Specifically, patient demonstrates normal lung capacity, tidal volume and respiratory rate without wheezes, crackles, rales or rubs. Heart rate and rhythm are regular without murmurs, gallops or rubs. No JVD. Pulses 2+ globally without increasing peripheral edema. AAOx3, NC/AT without acute distress or altered consciousness. Speech, cognition, mood and judgment at baseline and within normal limits. Const: General: cooperative Orientation/consciousness: patient oriented x3 Limitations: no limitations Assessment and Plan Assessment and plan (1) Bilateral sacroiliitis: Code(s): M46.1 - Sacroiliitis, not elsewhere classified Status: Acute (2) Dorsalgia: Code(s): M54.9 - Dorsalgia, unspecified Status: Acute (3) Chronic pain associated with significant psychosocial dysfunction: Code(s): G89.4 - Chronic pain syndrome Status: Acute Plan proceed as planned with bilateral sacroiliac joint steroid injection under fluoroscopic elizabeth
--- NOTE | 2024-03-15 06:13 | WPDHPUPDATE1 ---
History and Physical Update Update Date/Time: 03/15/24 06:13 History and Physical has been reviewed, including an updated exam of the patient. There are NO changes in the patient's condition. Risks, benefits, and alternatives have been discussed and questions answered. Patient agrees to proceed with procedure.
--- NOTE | 2024-03-15 06:14 | W.PM.PROC2 ---
Procedure Note - Detailed Date of Procedure 03/15/24 Pre-op Diagnosis Bilateral Sacroiliitis, chronic low back pain Post-op Diagnosis Same Procedure Performed Bilateral Sacroiliac Joint Steroid Injection under Fluoroscopic Guidance and with Contrast Control. Surgeon Cheng Harman MD Anesthesia Local Description of Procedure INFORMED CONSENT: Risks, benefits and alternatives to the procedure were discussed in detail with the patient who expressed explicit understanding and consent to proceed. Patient was informed verbally and in written form regarding the risks associated with the procedure including the low risk of serious infection, bleeding/bruising, allergic reaction, nerve or organ injury, paralysis, procedural site pain or discomfort, worsening pain and/or mobility, failure to treat and/or disfigurement. The patient expressed explicit understanding and consent to proceed. All materials required for the procedure were available prior to procedure start. Site and side were marked prior to procedure and confirmed in the presence of the patient. PROCEDURE IN DETAIL: The patient was brought to the procedural suite and placed in the prone position. Patient was made comfortable with use of pillows under the head/chest, hips and ankles. Skin overlying the injection site on the affected side(s) was prepared broadly with ChloraPrep applicator and draped in a sterile manner. Aseptic technique was used throughout. The SI joint was identified in the AP view and contralateral oblique angulation with caudal tilt was utilized to optimize visualization of the inferior and medial joint line representing the posterior portion of the right SI joint. Local anesthesia was established by infiltration with approximately 5 mL of 2% lidocaine via a 1-1/2 inch 27-gauge needle. A 22-gauge 3.5 inch Quincke spinal needle was advanced until the needle entered the inferior third of the joint space approximately 1cm cephalad from its most inferior point. In the AP view, 0.5 mL of Omnipaque 300 contrast medium was injected after negative aspiration for CSF, blood or other bodily fluid, showing appropriate intra-articular spread of contrast without evidence of intravascular, perineural or intrathecal placement. A 1.5 mL solution containing 3 mg of betamethasone in 0.5% PF bupivacaine was injected after repeat negative aspiration. Appropriate spread of the injectate was confirmed with washout of previous injected contrast. No parasthesias were elicited. Needle was removed completely intact without difficulty. The same exact procedure was repeated for all remaining levels on the contralateral side, left SI joint, modified as necessary to accommodate for the new target location with identical findings/results and no evidence of complication. Images were saved and documented in the patient chart. Patient's skin was cleansed and sterile bandage applied. The patient tolerated the procedure well. The patient was transported to the recovery area in stable condition where they were observed for an appropriate amount of time prior to discharge, without evidence of complication. The patient was instructed to avoid excessive activity for the next 48 hours, including climbing and frequent use of stairs. Showers only for 48 hours. They were instructed not to drive or operate heavy machinery for 24 hours. They are to monitor for severe headaches, fevers, chills, night sweats, erythema/swelling at the site or any other signs of infection, bleeding/bruising, bowel or bladder changes as well as new pain, weakness or numbness in the upper or lower extremity. Should they notice these changes, they are instructed to call our office immediately or report directly to the nearest Emergency Department if no answer or if after posted office hours. COMPLICATIONS: None COMMENTS: None CONTRAST WASTED: 29 mL Omnipaque 300 Estimated Blood Loss 0 IV Fluids 0 Urine Output 0 Drains No Packing No Pat
[2024-03-15 07:14] VITALS: BP 120/77; PULSE 84; RESP 16; TEMP 36.8; O2SAT 100; BMI 33.5
[2024-03-15 08:30] VITALS: BP 115/67; PULSE 76; RESP 16; O2SAT 100
[2024-03-15] MEDS: BETAMETHASONE SODIUM PHOSPHATE PF INJ 6 MG/ML VIAL INFILTRATE (08:38)
[2024-03-15 08:39] VITALS: BP 124/71; PULSE 87; RESP 16; O2SAT 99
[2024-03-15] MEDS: BUPivacaine HCL 0.5% 10 ML AMP 2 ML INFILTRATE (08:41)
[2024-03-15] MEDS: LIDOCAINE HCL 1% PF INJ 5 ML VIAL 3 ML XX (08:42)
[2024-03-15 08:44] VITALS: BP 108/78; PULSE 79; RESP 16; O2SAT 100
== END 2024-03-15 08:57 | disposition home or self-care (01) ==
LOC: ASC 06:52
PROVIDERS: PCP Nurse Practitioner Family; Visit Provider Anesthesiology Pain Medicine
PROC: (CPT G0260; principal; 2024-03-15 08:15)
DX: M46.1 Sacroiliitis, not elsewhere classified (principal); M54.59 Other low back pain
CPT/HCPCS: G0260 ×2; 27096; 99199

== ENCOUNTER 2024-05-06 08:58 | Outpatient (CLI) | payer OTHER, SELFPAY ==
[2024-05-06 09:42] LABS: Appearance Urine Clear (Clear); Color Urine Yellow (Yellow); Glucose Urine UA Negative (Negative); Protein Urine 1+ (Negative); Specific Grav Ur 1.025 (1.010-1.020)
[2024-05-06 09:43] LABS: Bilirubin Urine Negative (Negative); Blood Urine Trace (Negative); Ketones Urine Negative (Negative); Nitrate Urine Negative (Negative); Urobilinogen Urine Normal mg/dL (0.2-1.0)
[2024-05-06 09:44] LABS: Add Urine Microscopic? YES; Bacteria Urine 3+ /hpf; Leukocyte Esterase Ur 2+ LEU/UL (Negative); RBC Urine 0-2 /hpf (0-2); Squamous Epithelial Cell Urine Moderate /hpf (Few); WBC Urine 51-75 /hpf (0-3)
== END 2024-05-06 08:59 | disposition home or self-care (01) ==
LOC: CHSLAB 09:03
PROVIDERS: Nurse Practitioner Family; PCP Nurse Practitioner Family; Visit Provider Nurse Practitioner Family
DX: R82.90 Unspecified abnormal findings in urine (principal); Z87.898 Personal history of other specified conditions
CPT/HCPCS: 81001; 87086; 87088

== ENCOUNTER 2024-05-20 10:51 | Emergency (ER) | payer OTHER, SELFPAY ==
[2024-05-20 10:51] VITALS: BP 132/95; PULSE 102; RESP 16; TEMP 36.3; O2SAT 98
--- NOTE | 2024-05-20 10:58 | ED.FEMALEGU ---
HPI - Female Genitourinary General Chief complaint: Urogenital-Female Stated complaint: UTI symptoms Time Seen by Provider: 05/20/24 10:56 Source: patient Mode of arrival: ambulatory Limitations: no limitations History of Present Illness HPI Narrative: 29 year old female presents to the Emergency Department complaining of dysuria, increased frequency and voiding small amounts. Onset yesterday. Patient was seen by PCP 05/06 with similar symptoms and had UA and placed on Macrobid. States she was called several days later and advised she did not have UTI and could stop medication. States symptoms reoccurred yesterday. Tried to get a hold of PCP, but unable to today. States also has a history of kidney stones, but does not feel like that. MD elicited complaint: dysuria and UTI Pertinent past history: recurrent UTIs Onset (ago): day(s) (1) Quality of pain: burning Vaginal discharge: none Urinary symptoms: Dysuria, Urgency and Frequency Exacerbating factors: none Relieving factors: none Treatment prior to arrival: none Patient : No Related Data Allergies Allergy/AdvReac Type Severity Reaction Status Date / Time amoxicillin AdvReac Hives Verified 05/20/24 10:51 Review of Systems Review of Systems: All systems reviewed & are unremarkable except as noted in HPI and below Constitutional: Constitutional: Reports as per HPI and Denies chills Eyes: Eyes: Reports as per HPI ENT: Reports system reviewed and no additional complaints, except as documented Cardiovascular: Cardiovascular: Reports as per HPI Respiratory: Respiratory: Reports as per HPI Gastrointestinal: Gastrointestinal: Reports as per HPI, Denies abdominal pain, Denies diarrhea, Denies nausea and Denies vomiting Genitourinary: Genitourinary: Reports no additional female genitourinary complaints, Reports nocturia, Reports dysuria, Denies flank pain and Denies vaginal discharge Musculoskeletal: Musculoskeletal: Reports no additional musculoskeletal complaints and Denies back pain Integumentary/Breasts: Skin/Breast: Reports system reviewed and no additional complaints, except as docu Neurologic: Reports system reviewed and no additional complaints, except as documented PMFSH Past Medical History Medical History Chronic low back pain History of recurrent miscarriages Urinary tract infection Surgical History Surgical History No pertinent past surgical history Family History Family History Father , Passed 05/2023 from Stage 3 lung cancer Lung cancer Social History Social History Smoking status: Never smoker Second hand tobacco smoke exposure: Yes Alcohol intake: never Substance use: current Substance use type: marijuana Other substance usage details: Daily Lack of Transportation: No Lack of Food: Never True Current Housing: I Have Housing Concerned About Future Housing: YES Difficulty Paying Gas/Electric Bills: YES Difficulty Paying for Meds: No Currently Unemployed: YES Education: High School Diploma/GED Difficulty w/ Childcare or Family Care: No Living arrangements: with family Gender identity (if verbalized by the patient): Female Spiritual care concerns: No Exam Const: General: healthy appearing, no acute distress and alert Nutritional Appearance: well nourished Orientation/consciousness: patient oriented x3 Limitations: no limitations HENMT: Head: normal to inspection Ears: external ears normal Face/Nose/Sinus: Normal external nose present Face and sinus: normal facial exam Eyes: Pupils: Equal, round and reactive pupils present EOM: EOMs intact bilaterally Neck: Neck: normal visual inspection Chest: Chest palpation & inspection: normal inspection of the chest Resp:
[2024-05-20 11:02] LABS: Pregnancy On Board Control Positive; Urine Pregnancy Test Positive
[2024-05-20 11:10] LABS: Add Urine Microscopic? YES; Bilirubin Urine Negative (Negative); Blood Urine Negative (Negative); Color Urine Yellow (Yellow); Glucose Urine UA Negative (Negative); Ketones Urine Negative (Negative); Leukocyte Esterase Ur 3+ LEU/UL (Negative); Nitrate Urine Negative (Negative); Protein Urine Negative (Negative); Specific Grav Ur 1.015 (1.010-1.020); pH Urine 7.5 (5.0-8.0)
[2024-05-20 11:14] LABS: Appearance Urine Cloudy (Clear); RBC Urine None seen /hpf (0-2); Squamous Epithelial Cell Urine Moderate /hpf (Few); WBC Urine 31-50 /hpf (0-3)
[2024-05-20 11:15] LABS: Bacteria Urine 2+ /hpf
[2024-05-20 11:27] VITALS: BP 132/95; PULSE 102; RESP 16; TEMP 36.3; O2SAT 98
--- NOTE | 2024-05-22 12:48 | PC.NURSE ---
final urine culture report reviewed. mixed genital eladio isolated. these superficial bacteria are not indicative of a uti. no change in plan of care.
== END 2024-05-20 11:27 | disposition home or self-care (01) ==
PROVIDERS: Emergency Provider Emergency Medicine; PCP Nurse Practitioner Family
DX: O23.40 Unspecified infection of urinary tract in pregnancy, unspecified trimester (principal); N39.0 Urinary tract infection, site not specified; Z3A.00 Weeks of gestation of pregnancy not specified
CPT/HCPCS: 81001; 81025; 87086; 87088; 99283

== ENCOUNTER 2024-05-23 11:30 | Outpatient (CLI) | payer OTHER, SELFPAY ==
[2024-05-23 12:29] LABS: Alanine Aminotransferase 18 U/L (14-59); Albumin Level 3.4 g/dL (3.4-5.0); Alkaline Phosphatase 95 U/L (46-116); Anion Gap 9 mmol/L (4-12); Aspartate Amino Transferase 20 U/L (15-37); Bilirubin,Total 0.5 mg/dL (0.00-1.00); Blood Urea Nitrogen 5 mg/dL (7-18); Calcium 8.8 mg/dL (8.5-10.1); Carbon Dioxide 28 mmol/L (21-32); Chloride 101 mmol/L (98-108); Cholesterol 174 mg/dL (0-200); Estimated Glomerular Filt Rate > 60; Glucose 99 mg/dL (70-99); HDL Direct 81 mg/dL (40-60); LDL Cholesterol Calculated 83 mg/dL (<130); Osmolality Calculated 283 mOsm/kg (285-295); Potassium 3.8 mmol/L (3.5-5.1); Sodium 138 mmol/L (136-145); Thyroid Stimulating Hormone 1.28 uIU/mL (0.36-3.74); Total Protein 7.2 g/dL (6.4-8.2); Triglycerides 52 mg/dL (0-150)
== END 2024-05-23 11:31 | disposition home or self-care (01) ==
LOC: CHSLAB 11:39
PROVIDERS: PCP Nurse Practitioner Family; Visit Provider Nurse Practitioner Family
DX: Z00.00 Encounter for general adult medical examination without abnormal findings (principal); R63.5 Abnormal weight gain; Z87.42 Personal history of other diseases of the female genital tract
CPT/HCPCS: 36415; 80053; 80061; 83036; 84443; 84702

== ENCOUNTER 2024-05-31 10:55 | Emergency (ER) | payer OTHER, SELFPAY ==
[2024-05-31 10:55] VITALS: BP 127/84; PULSE 96; RESP 18; TEMP 36.9; O2SAT 100
--- NOTE | 2024-05-31 11:02 | ED.SKABFB ---
HPI - Skin/Abscess/Foreign Bdy General Chief complaint: Burn/Smoke Inhalation Stated complaint: hand burn Time Seen by Provider: 05/31/24 11:02 Source: patient Mode of arrival: ambulatory Limitations: no limitations History of Present Illness HPI narrative: Patient is a 29-year-old female with a left hand burn after hot tea spilled on her in the past 30 minutes. This happened at work. She is having slight blistering. Pain is 6/10. Patient is 9 weeks . complaint: other ( Skin burn thermal) Onset (ago): minute(s) (30) Tetanus up to date: no Location: LUE ( left hand) Severity: moderate Severity scale (1-10): 6 Quality: burning and sharp Pain Consistency: constant Relieving factors: none Exacerbating factors: none Context: other ( pouring hot tea and landed on her left hand) Associated symptoms: denies other symptoms Treatments prior to arrival: none Related Data Allergies Allergy/AdvReac Type Severity Reaction Status Date / Time amoxicillin AdvReac Hives Verified 05/31/24 11:05 Review of Systems Review of Systems: All systems reviewed & are unremarkable except as noted in HPI and below Constitutional: Constitutional: Reports no additional constitutional complaints Eyes: Eyes: Reports no additional eye complaints ENT: Reports system reviewed and no additional complaints, except as documented Cardiovascular: Cardiovascular: Reports no additional cardiovascular complaints Respiratory: Respiratory: Reports no additional respiratory complaints Gastrointestinal: Gastrointestinal: Reports no additional gastrointestinal complaints Genitourinary: Genitourinary: Reports no additional female genitourinary complaints Musculoskeletal: Musculoskeletal: Reports no additional musculoskeletal complaints Integumentary/Breasts: Skin/Breast: Reports system reviewed and no additional complaints, except as docu Neurologic: Reports system reviewed and no additional complaints, except as documented Psychiatric: Psychiatric: Reports no additional psychiatric complaints Endocrine: Endocrine: Reports no additional endocrine complaints Hematologic/Lymphatic: Hematologic/Lymphatic: Reports no additional hematologic/lymphatic complaints Allergic/Immunologic: Allergic/Immunologic: Reports no additional allergic/immunologic complaints PMFSH Past Medical History Medical History Chronic low back pain History of recurrent miscarriages Urinary tract infection Surgical History Surgical History No pertinent past surgical history Family History Family History Father , Passed 05/2023 from Stage 3 lung cancer Lung cancer Social History Social History Smoking status: Never smoker Second hand tobacco smoke exposure: Yes Alcohol intake: never Substance use: current Substance use type: marijuana Other substance usage details: Daily Lack of Transportation: No Lack of Food: Never True Current Housing: I Have Housing Concerned About Future Housing: YES Difficulty Paying Gas/Electric Bills: YES Difficulty Paying for Meds: No Currently Unemployed: YES Education: High School Diploma/GED Difficulty w/ Childcare or Family Care: No Living arrangements: with family Gender identity (if verbalized by the patient): Female Spiritual care concerns: No Exam Const: General: healthy appearing Nutritional Appearance: well nourished Orientation/consciousness: patient oriented x3 HENMT: Head: normal to inspection Ears: external ears normal Face/Nose/Sinus: Normal external nose present Eyes: Conjunctivae: conjunctivae normal Pupils: Equal, round and reactive pupils present EOM: EOMs intact bilaterally Neck: Neck: normal visual inspection Chest: Chest palpation & ins
[2024-05-31] MEDS: TETANUS,DIPHTHERIA,AC PERTUSSIS ADULT 0.5 ML (ADACEL) IM (11:20)
[2024-05-31] MEDS: ACETAMINOPHEN 500 MG TABLET 1000 MG PO (11:21)
[2024-05-31] MEDS: SILVER SULFADIAZINE 1% CR 50 GM JAR (*BKC) 1 APPLIC TOPICAL (11:21)
--- NOTE | 2024-05-31 13:51 | PC.NURSE ---
HIV DECLINATION FORM SIGNED AND SCANNED INTO CHART. PT CALLED STATING HER RX WERE NOT AT PHARMACY, PER EHR THEY ARE IN SENT STATUS, NOT RECEIVED. ERP ATTEMPTS TO RESEND, THEY REMAIN IN SENT STATUS. CALLED AND SPOKE WITH PETER AT [facility] IN [place], HE REPORTS HE HAS NOT RECEIVED THEM. I ADVISED HIM TO CANCEL ANY RX THAT COME OVER ELECTRONICALLY, ERP IS HANDWRITING RX AND PT IS PICKING UP RX TO HAVE FILLED. SHE HAS BEEN NOTIFIED FOR NEED TO [facility].
== END 2024-05-31 11:42 | disposition home or self-care (01) ==
LOC: CHSED 11:25
PROVIDERS: Emergency Provider Emergency Medicine; PCP Nurse Practitioner Family
DX: O26.891 Other specified pregnancy related conditions, first trimester (principal); T23.202A Burn of second degree of left hand, unspecified site, initial encounter; T31.0 Burns involving less than 10% of body surface; Z23 Encounter for immunization; Z3A.09 9 weeks gestation of pregnancy; X12.XXXA Contact with other hot fluids, initial encounter
CPT/HCPCS: 90471; 90715; 99283; A9270

== ENCOUNTER 2024-07-12 14:15 | Emergency (ER) | payer OTHER, SELFPAY ==
[2024-07-12 14:17] VITALS: BP 121/70; PULSE 79; RESP 18; TEMP 36.4; O2SAT 100
--- NOTE | 2024-07-12 14:44 | ED.HA ---
HPI - Headache General Chief Complaint: Headache Stated Complaint: throwing up Time Seen by Provider: 07/12/24 14:38 Source: patient Mode of arrival: ambulatory Limitations: no limitations History of Present Illness HPI Narrative: patient is a 29-year-old female with significant past medical history that presents today for a headache. She states that today she was having a headache in that and vomited and a little bit of right arm numbness all the same time. She has had 4 miscarriages in the past she has 1 to make sure the BP was okay and had good heart tones. We did do heart tones and the heart tones were good at 158. MD elicited complaint: headache Pertinent past history: other ( ) Onset (ago): hour(s) Onset description: suddenly Severity: mild Quality & Timing: aching Exacerbating factors: none Relieving factors: nothing Context: occurred at rest Associated symptoms: none Related Data Allergies Allergy/AdvReac Type Severity Reaction Status Date / Time amoxicillin AdvReac Hives Verified 07/12/24 14:22 Review of Systems Review of Systems: All systems reviewed & are unremarkable except as noted in HPI and below Constitutional: Constitutional: Reports as per HPI Eyes: Eyes: Reports no additional eye complaints ENT: Reports system reviewed and no additional complaints, except as documented Cardiovascular: Cardiovascular: Reports no additional cardiovascular complaints Respiratory: Respiratory: Reports no additional respiratory complaints Gastrointestinal: Gastrointestinal: Reports no additional gastrointestinal complaints Genitourinary: Genitourinary: Reports no additional female genitourinary complaints Musculoskeletal: Musculoskeletal: Reports no additional musculoskeletal complaints Integumentary/Breasts: Skin/Breast: Reports system reviewed and no additional complaints, except as docu Neurologic: Reports system reviewed and no additional complaints, except as documented Psychiatric: Psychiatric: Reports no additional psychiatric complaints Endocrine: Endocrine: Reports no additional endocrine complaints Hematologic/Lymphatic: Hematologic/Lymphatic: Reports no additional hematologic/lymphatic complaints Allergic/Immunologic: Allergic/Immunologic: Reports no additional allergic/immunologic complaints PMFSH Past Medical History Medical History Chronic low back pain History of recurrent miscarriages Urinary tract infection Surgical History Surgical History No pertinent past surgical history Family History Family History Father , Passed 05/2023 from Stage 3 lung cancer Lung cancer Social History Social History Smoking status: Never smoker Second hand tobacco smoke exposure: Yes Alcohol intake: never Substance use: current Substance use type: marijuana Other substance usage details: Daily Lack of Transportation: No Lack of Food: Never True Current Housing: I Have Housing Concerned About Future Housing: YES Difficulty Paying Gas/Electric Bills: YES Difficulty Paying for Meds: No Currently Unemployed: YES Education: High School Diploma/GED Difficulty w/ Childcare or Family Care: No Living arrangements: with family Gender identity (if verbalized by the patient): Female Spiritual care concerns: No Exam Const: General: healthy appearing and no acute distress Nutritional Appearance: well nourished Orientation/consciousness: patient oriented x3 HENMT: Head: normal to inspection Ears: external ears normal Face/Nose/Sinus: Normal external nose present Face and sinus: normal facial exam Eyes: Conjunctivae: conjunctivae normal Pupils: Equal, round and reactive pupils present Neck: Neck: normal visual inspection Chest: Chest palpation & inspection: normal inspection of the chest Resp: Effort & Inspection: normal respiratory effort Auscultation: clear to auscultation bilaterally Cardio: Rate: regular rate Rhythm: regular rhythm GI: GI Palp: Yes Soft to palpation and Yes Tenderness to palpation present (GI) Back/Spine/Pelvis: Back: no CVA tenderness Skin: General skin exam: normal color Rashes: no rashes Wounds: no wounds Neuro: General: patient oriented x3, moves all extremities and no meningeal signs Extrem: General: normal to inspection Psych: Mental Status: mental status grossly normal Affect: normal affect Attitude: cooperative Course Vital Signs Vital signs: Vital Signs Temperature 97.6 F 07/12/24 14:17 Pulse Rate 79 07/12/24 14:17 Respiratory Rate 18 07/12/24 14:17 Blood Pressure 121/70 07/12/24 14:17 Pulse Oximetry 100 07/12/24 14:17 Oxygen Delivery Room Air 07/12/24 14:17 Temperature 97.6 F 07/12/24 14:17 Pulse Rate 79 07/12/24 14:17 Respiratory Rate 18 07/12/24 14:17 Blood Pressure 121/70 07/12/24 14:17 Pulse Oximetry 100 07/12/24 14:17 Oxygen Delivery Room Air 07/12/24 14:17 MDM - Headache MDM Narrative Medical decision making narrative: patient had nausea and vomiting from . She also a headache that she took Tylenol for the headache has since resolved. Discussed with [facility] and [facility]mair to her pharmacy when she has the nausea and to use it sparingly. heart tones were good at 1:50 a.m. a without her main reason for coming in dosage checked heart tones. Differential Diagnosis Differential diagnosis: Likely headache Medical Records Attestation: I reviewed the patient's medical records. Lab Data Attestation: I reviewed the patient's lab results. Discharge Plan Discharge Clinical Impression: Headache, Patient Disposition: Home, Self-Care Condition: Stable Instructions: Acute Headache (ED) Prescriptions: New ondansetron 4 mg tablet,disintegrating 4 mg PO Q8H PRN (Reason: nausea and vomiting) Qty: 20 0RF Follow-up/Referrals: Bisi Whiteside APRN [Primary Care Provider] - Time of Disposition: 14:55
== END 2024-07-12 14:59 | disposition home or self-care (01) ==
LOC: CHSED 14:56
PROVIDERS: Emergency Provider Family Medicine; PCP Nurse Practitioner Family
DX: O26.899 Other specified pregnancy related conditions, unspecified trimester (principal); R51.9 Headache, unspecified; Z3A.00 Weeks of gestation of pregnancy not specified
CPT/HCPCS: 99283

== ENCOUNTER 2024-08-02 14:45 | Emergency (ER) | payer OTHER, SELFPAY ==
--- NOTE | 2024-08-02 14:47 | ED_ITS ---
HPI - SOB/Dyspnea General Chief Complaint: Upper Respiratory Infection Stated Complaint: URI Time Seen by Provider: 08/02/24 14:47 Source: patient Mode of arrival: ambulatory Limitations: no limitations History of Present Illness HPI Narrative: Patient is a 29-year-old female with cough and congestion of the chest and she is 17 weeks . No fever or chills. Her is having the similar symptoms. MD elicited complaint: cough Pertinent past history: other ( Patient is 72 weeks at this time with cough and congestion) Onset (ago): day(s) (3) Context: other ( slow progression of this cough and congestion over the past few days) Timing: constant Severity: mild Exacerbating factors: nothing Relieving factors: nothing Known history of: other ( none) Associated symptoms: chest congestion Treatment prior to arrival: none Related Data Home oxygen amount: none Allergies Allergy/AdvReac Type Severity Reaction Status Date / Time amoxicillin AdvReac Hives Verified 08/02/24 15:05 Review of Systems Review of Systems: All systems reviewed & are unremarkable except as noted in HPI and below Constitutional: Constitutional: Reports no additional constitutional complaints Eyes: Eyes: Reports no additional eye complaints ENT: Reports system reviewed and no additional complaints, except as documented Cardiovascular: Cardiovascular: Reports no additional cardiovascular comp laints Respiratory: Respiratory: Reports no additional respiratory complaints Gastrointestinal: Gastrointestinal: Reports no additional gastrointestinal complaints Genitourinary: Genitourinary: Reports no additional female genitourinary c omplaints Musculoskeletal: Musculoskeletal: Reports no additional musculoskeletal complaints Integumentary/Breasts: Skin/Breast: Reports system reviewed and no additional complaints, except as docu Neurologic: Reports system reviewed and no additional complaints, except as documented Psychiatric: Psychiatric: Reports no additional psychiatric complaints Endocrine: Endocrine: Reports no additional endocrine complaints Hematologic/Lymphatic: Hematologic/Lymphatic: Reports no additional hematologic/lymphatic complaints Allergic/Immunologic: Allergic/Immunologic: Reports no additional allergic/immunologic complaints PMFSH Past Medical History Medical History Chronic low back pain History of recurrent miscarriages Urinary tract infection Surgical History Surgical History No pertinent past surgical history Family History Family History Father , Passed 05/2023 from Stage 3 lung cancer Lung cancer Social History Social History Smoking status: Never smoker Second hand tobacco smoke exposure: Yes Alcohol intake: never Substance use: current Substance use type: marijuana Other substance usage details: Daily Lack of Transportation: No Lack of Food: Never True Current Housing: I Have Housing Concerned About Future Housing: YES Difficulty Paying Gas/Electric Bills: YES Difficulty Paying for Meds: No Currently Unemployed: YES Education: High School Diploma/GED Difficulty w/ Childcare or Family Care: No Living arrangements: with family Gender identity (if verbalized by the patient): Female Spiritual care concerns: No Course Vital Signs Vital signs: Vital Signs Temperature 36.5 C 08/02/24 14:55 Pulse Rate 95 08/02/24 14:55 Respiratory Rate 16 08/02/24 14:55 Blood Pressure 112/73 08/02/24 14:55 Pulse Oximetry 100 08/02/24 14:55 Oxygen Delivery Room Air 08/02/24 14:55 Temperature 36.5 C 08/02/24 14:55 Pulse Rate 95 08/02/24 14:55 Respiratory Rate 16 08/02/24 14:55 Blood Pressure 112/73 08/02/24 14:55 Pulse Oximetry 100 08/02/24 15:08 Oxygen Delivery Room Air 08/02/24 15:08 MDM - SOB/Dyspnea Lab Data Labs: Lab Results 08/02/24 Range/Units 15:19 Influenza A (RT-PCR) Negative (Negative) Influenza B (RT-PCR) Negative (Negative) RSV (RT-PCR) Negative (Negative) SARS-CoV-2 RNA (RT-PCR) Negative (Negative) Group A Strep (PCR) Not detected (Negative) Discharge Plan Discharge Clinical Impression: Bronchitis Patient Disposition: Home, Self-Care Condition: Stable Instructions: Antibiotic Form, Acute Bronchitis (ED) Prescriptions: New azithromycin 250 mg tablet See Rx Instructions .ROUTE .COMPLEX Qty: 6 0RF Rx Instructions: For 250 mg dose pack: take 500 mg today (day 1), then 250 mg for 4 days (days 2-5) No Action ondansetron 4 mg tablet,disintegrating 4 mg PO Q8H PRN (Reason: nausea and vomiting) Qty: 20 0RF Follow-up/Referrals: Bisi Whiteside APRN [Primary Care Provider] - Time of Disposition: 16:21
[2024-08-02 14:55] VITALS: BP 112/73; PULSE 95; RESP 16; TEMP 36.5; O2SAT 100
[2024-08-02 15:08] VITALS: O2SAT 100
[2024-08-02 16:02] LABS: Strep Group A RT-PCR NOT DETECTED (Negative)
[2024-08-02 16:04] LABS: Influenza A QL RT-PCR Negative (Negative); Influenza B QL RT-PCR Negative (Negative); RSV RNA, RT-PCR Negative (Negative); SARS-CoV-2 RNA PCR Negative (Negative)
[2024-08-02 16:34] VITALS: BP 115/74; PULSE 94; RESP 16; TEMP 36.5; O2SAT 100
== END 2024-08-02 16:34 | disposition home or self-care (01) ==
PROVIDERS: Emergency Provider Emergency Medicine; PCP Nurse Practitioner Family
DX: J40 Bronchitis, not specified as acute or chronic (principal); Z20.822 Contact with and (suspected) exposure to COVID-19
CPT/HCPCS: 87637; 87651; 99283

== ENCOUNTER 2025-01-04 04:49 | Inpatient (IN) | payer OTHER, SELFPAY ==
[2025-01-04] VITALS (59 sets, daily range): BP systolic 83–144; BP diastolic 51–93; PULSE 64–139; RESP 18; TEMP 36.1–36.8; O2SAT 93–100; BMI 39.0
--- OUTSIDE RECORDS SUMMARY | 2025-01-04 04:55 | XMS_ITS | Referral Summary ---
Author Organization [facility] Address [facility] [address] Care Team Providers Care Assistant Health Educator Name Role Phone Pj Chavez MD Primary Care Provider [phone] Allergies No known active allergies Medications LORazepam (ATIVAN) 0.5 mg tablet 05/23/2021 Activ e traMADoL (ULTRAM) 50 mg tablet 05/16/2021 Active Active Problems Problem Noted Date Diagnosed Date Recurrent UTI 05/27/2021 History of nephrolithiasis 05/27/2021 High-risk 07/13/2017 Small for dates affecting management of mother 0 04/27/2017 Social History Tobacco Use Types Packs/Day Years Used Date Smoking Tobacco: Never Smokeless Tobacco: Never Comments Unknown Sex and Gender Information Value Date Recorded Sex Assigned at Not on file 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 Gender Identity Not on file Sexual Orientation Not on file Last Filed Vital Signs Vital Sign Reading Time Taken Comments Blood Pressure 111/71 05/27/2021 1:05 PM CDT Pulse 88 05/27/2021 1:05 PM CDT Temperature 36.4 C (97.6 F) 06/20/2021 1:03 PM CDT Respiratory Rate 18 05/27/2021 1:05 PM CDT Oxygen Saturation - - Inhaled Oxygen Concentration - - Weight 73 kg (160 lb 14.4 oz) 06/20/2021 1:03 PM CDT Height 160 cm (5' 3 ) 06/20/2021 1:03 PM CDT Body Mass Index 28.5 06/20/2021 1:03 PM CDT Plan of Treatment Not on file Insurance [facility] [employer] [facility] Care Teams Assistant Health Educator Relationship Specialty Start Date End Date Pj Chavez MD [address] [facility] [place] [address] PCP - General Family Medicine 05/20/21
--- OUTSIDE RECORDS SUMMARY | 2025-01-04 04:55 | XMS_ITS | Clinical Summary ---
Author Organization [facility] Address [address] [place] [address] Care Team Providers Care Interactive Developer Name Role Phone Pj Chavez MD Primary Care Provider [phone] Rich Zambrano MD Unavailable [phone] Allergies No known active allergies Medications LORazepam 0.5 MG tablet 0.5 mg. 12/25/2020 Active meclizine 25 MG tablet Take 25 mg by mouth 3 (three) times daily as needed. Active Active Problems No known active problems Family History Medical History Relation Comments Hypertension Mother Relation Status Comments Father Alive Mother Alive Social History Tobacco Use Types Packs/Day Years Used Date Smoking Tobacco: Never Smokeless Tobacco: Never Alcohol Use Standard Drinks/Week Comments Not Currently 0 (1 standard drink = 0.6 oz pur e alcohol) socially Comments No Sex and Gender Information Value Date Recorded Sex Assigned at Not on file Legal Sex Female 7:10 PM CDT Gender Identity Not on file Sexual Orientation Not on file Last Filed Vital Signs Vital Sign Reading Time Taken Comments Blood Pressure 121/69 04/17/2021 2:19 PM CDT Pulse 77 04/17/2021 2:18 PM CDT Temperature 36.9 C (98.4 F) 03/29/2021 2:24 PM CDT Respiratory Rate 16 04/17/2021 2:18 PM CDT Oxygen Saturation 100% 04/17/2021 2:18 PM CDT Inhaled Oxygen Concentration - - Weight 62.1 kg (137 lb) 04/17/2021 2:18 PM CDT Height 160 cm (5' 3 ) 04/17/2021 2:18 PM CDT Body Mass Index 24.27 04/17/2021 2:18 PM CDT Plan of Treatment Health Maintenance Due Date Last Done Comments Cervical Cancer Screening Pap Smear (Age 21 to 29) Every 3 Years 1997 Cervical Cancer Screening 1997 Annual Physical 2000 DTaP, Tdap and Td Vaccines (6 - Tdap) 2008 05/11/2003, 04/15/2002, 04/26/2001, Additional history exists Hepatitis C 2015 Hepatitis B Vaccines (1 of 3 - 19+ 3-dose series) 2016 COVID-19 Vaccine (2023- season) 2024 HPV Vaccines Aged Out No longer eligi ble based on patient's age to complete this topic Meningococcal B Vaccine Aged Out No l onger eligible based on patient's age to complete this topic Meningococcal Vaccine Aged Out No kelsey judith eligible based on patient's age to complete this topic Pneumococcal Vaccine: Pediatrics (0 to 5 Years) and At-Risk Patients (6 to 49 Years) Aged Out No longer eligible based on patient's age to complete this topic RSV Immunizations Under 20 Months Aged Out No longer eligible based on patient's age to complete this topic Medical Devices Implanted Type Area Diesel Service Technician Device Identifier Shelf Expiration Date Model / Serial / Lot Pin [employer] Trim It Small - Sn/A Implanted:Qty: 1 on 11/12/2018 by Alex Frias DPM at [facility] Right: Toe [employer] 05/30/2020 [id number] / N/A / [id number] Insurance [employer] Care Teams Interactive Developer Relationship Specialty Start Date End Date Pj Chavez MD [address] [place] [id number] PCP - General FAMILY PRACTICE 09/07/18 Rich Zambrano MD [address] [place] [phone] [place] Tier Lift Operator INTERVENTIONAL CARDIOLOGY 04/16/21
--- OUTSIDE RECORDS SUMMARY | 2025-01-04 04:55 | XMS_ITS | Encounter Summary ---
Author Organization [facility] Address [address] [place] [address] Phone Care Team Providers Care Dike Supervisor Name Role Phone Pj Chavez MD Primary Care Provider [phone] Encounter Details Date Type Department Care Team (Late st Contact Info) Description 05/21/2021 Telephone [facility] [place] [facility] [address] [place] [address] A [address] [place] [address] Zelda Mckinley CMA Social History Tobacco Use Types Packs/Day Years Used Date Smoking Tobacco: Never Assessed Comments Unknown Sex and Gender Information Value Date Recorded Sex Assigned at Not on file 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
--- OUTSIDE RECORDS SUMMARY | 2025-01-04 04:55 | XMS_ITS | Data Portability ---
Author Organization [facility] [place] Address [address] [place] [address] [place] [address] Assessment No assessment recorded. Plan of Treatment Reminders Order Date Submit Date Provider Last Modified By Organization Details Last Modified Time Details Appointments INDUCTI ON 2024 05:00A Moshe SMITH MD Not available Not available Not available U/S OB BPP 2024 01:00P M ULTRASOUND Not available Not available Not available NST 2024 01:30P M NST SCHEDULE Not available Not available Not available OB ROUTINE 2024 02:00P Moshe SMITH MD Not available Not available Not available U/S OB BPP 2024 01:00P M ULTRASOUND Not available Not available Not available NST 2024 01:30P M NST SCHEDULE Not available Not available Not available OB ROUTINE 2024 02:00P Moshe SMITH MD Not available Not available Not available Lab None recorde d. Referral None recorde d. Procedures None recorde d. Surgeries None recorde d. Imaging non-str ess test 2024 025 [email or web address] [place], [address], [place], [address], 01/03/2025 08:42:04 US, obstetr ic, biophys ical profile + non-str ess test 2024 025 [email or web address] [address], [address], [place], [address], 12/29/2024 21:40:50 non-str ess test 2024 025 [email or web address] [email or web address] [address], [place], [address], 12/28/2024 07:43:41 US, obstetr ic, biophys ical profile + non-str ess test 2024 025 [email or web address] [place], [address], [place], [address], 12/23/2024 17:42:59 Medication Orders None recorde d. Patient TargetsNo targets recorded. Patient InstructionsNo instructions recorded. Reason for Referral None Reported. Results Created Date Observation Date Name Description Value Unit Range Abnormal Flag Note LastModifiedBy Organization Detail LastModifiedTime 12/09/1912/08/2024 CULTU RE: GROUP B STREP SCREE N, REFLE X SUSCE PTIBI LITY result report SEE RESULT S BELOW Test: Cultu re: Group B Strep , Refle x Susce ptibi lity ([facility]/ [facility] ) Speci men Sourc e: Vagin a/Rec rebeca Speci men Type: Vagin al/Re ctal Speci men Date: 2024 1610 Resul t Date: 2024 1408 Resul t Statu s: Final resul t Abnor mal: No Resul ting Lab: [facility] [address] [facility] [address] Tel: CULTU RE ----- ----- ----- --- No Group B strep isola brenda at 2 days (solo ctive broth enhan cemen t) Not Available [facility] (Lab) [address] [facility], [place], [address], 12/11/2024 15:12:09 11/25/1911/24/2024 US, obste tric, bioph ysica l profi le + non-s tress test No observ ation record ed. [email or web address] [place] [address], [place], [address], 11/24/2024 17:14:44 11/25/19 25 11/24/2024 US, obste tric, bioph ysica l profi le + non-s tress test No observ ation record ed. [email or web address] [address] [address], [place], [address], 11/24/2024 15:37:50 11/25/19 25 11/24/2024 non-s tress test No observ ation record ed. [email or web address] [place] [address], [place], [address], 11/25/2024 21:47:09 11/26/19 non-s tress test No observ ation record ed. [email or web address] [place] [address], [place], [address], 11/25/2024 10:57:05 12/02/19 25 12/01/2024 US, obste tric, follo w-up No observ ation record ed. [email or web address] [place] [address], [place], [address], 12/01/2024 17:07:50 12/02/19 25 12/01/2024 US, obste tric, bioph ysica l profi le + non-s tress test No observ ation record ed. [email or web address] [place] [address], [place], [address], 12/01/2024 17:08:06 12/02/19 25 12/01/2024 US, obste tric, follo w-up No observ ation record ed. [email or web address] [address], [place], [address], 12/01/2024 21:20:34 12/02/19 25 12/01/2024 non-s tress test No observ ation record ed. [email or web address] [place] [address], [place], [address], 12/01/2024 15:22:31 12/09/19 25 12/08/2024 US, obste tric, bioph ysica l profi le + non-s tress test No observ ation record ed. [email or web address] [place] [address], [place], [address], 12/08/2024 16:27:31 12/09/19 25 12/08/2024 US, obste tric, bioph ysica l profi le + non-s tress test No observ ation record ed. [email or web address] [address], [place], [address], 12/08/2024 22:48:24 12/09/19 25 12/08/2024 non-s tress test No observ ation record ed. [email or web address] [place] [address], [place], [address], 12/08/2024 16:24:41 12/16/19 25 12/15/2024 US, obste tric, bioph ysica l profi le + non-s tress test No observ ation record ed. [email or web address] [place] [address], [place], [address], 12/15/2024 14:49:02 12/16/19 25 12/15/2024 US, obste tric, bioph ysica l profi le + non-s tress test No observ ation record ed. [email or web address] [address], [place], [address], 12/15/2024 21:35:52 12/20/19 25 12/19/2024 non-s tress test No observ ation record ed. [email or web address] [place] [address], [place], [address], 12/19/2024 10:45:26 12/21/19 US, obste tric, bioph ysica l profi le + non-s tress test No observ ation record ed. [email or web address] [place] [address], [place], [address], 12/20/2024 09:15:54 12/23/1912/22/2024 US, obste tric, follo w-up No observ ation record ed. [address] [facility], [place], [address], 12/26/2024 23:15:02 12/24/19 25 12/23/2024 US, obste tric, bioph ysica l profi le + non-s tress test No observ ation record ed. [email or web address] [place] [address], [place], [address], 12/23/2024 13:30:33 12/28/1912/27/2024 non-s tress test No observ ation record ed. [email or web address] [place] [address], [place], [address], 12/27/2024 11:50:24 12/28/19 US, obste tric, bioph ysica l profi le + non-s tress test No observ ation record ed. [email or web address] [place] [address], [place], [address], 12/27/2024 11:29:41 12/30/19 25 12/29/2024 US, obste tric, bioph ysica l profi le + non-s tress test No observ ation record ed. [email or web address] [place] [address], [place], [address], 12/29/2024 15:01:58 12/30/19 25 12/29/2024 US, obste tric, bioph ysica l profi le + non-s tress test No observ ation record ed. [email or web address] [address], [place], [address], 12/31/2024 23:37:29 01/03/20 25 01/02/2025 non-s tress test No observ ation record ed. [email or web address] [place] [address], [place], [address], 01/02/2025 10:35:44 Result Notes None recorded. Problems Name Problem SNOMED Code Status Onset Date Resolution Date Notes Provider Name and Address Organization Details Recorded Time Gestatio n period, 38 weeks 51811845 Active 2016 38 weeks gestation of ;Practice ID: 0001 Not Available [facility] 0 17:03:11 Single liveborn born in hospital by vaginal delivery 21804269233 102 Active 2017 Single liveborn infant, delivered vaginally ;Practice ID: 0001 Not Available [facility] 0 17:03:11 Disorder of uterus Active 2017 Other immediate postpartu m hemorrhag e;Practic e ID: 0001 Not Available [facility] 0 17:03:11 Uterus finding Active 2017 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;Practic e ID: 0001 Not Available [facility] 0 17:03:11 Normal pregnanc y in multigra nikko 69978547712 4106 Active 2016 Encounter for suprvsn of normal , third trimester ;Practice ID: 0001 Not Available [facility] 0 17:03:12 finding Active 2016 Matern care for oth or susp poor fetl grth, third tri, unsp;Prac barrett ID: 0001 Not Available [facility] 0 17:03:12 Gestatio n period, 32 weeks 4173359 Active 2016 32 weeks gestation of ;Practice ID: 0001 Not Available [facility] 0 17:03:12 finding Active 2016 Matern care for oth or susp poor fetl grth, 2nd tri, unsp;Prac barrett ID: 0001 Not Available [facility] 0 17:03:12 Gestatio n period, 33 weeks 91016620 Active 2016 33 weeks gestation of ;Practice ID: 0001 Not Available [facility] 0 17:03:12 Gestatio n period, 34 weeks 64856234 Active 2016 34 weeks gestation of ;Practice ID: 0001 Not Available [facility] 0 17:03:[address] Concept Active 2016 Decreased movements , third trimester , unsp;Prac barrett ID: 0001 Not Available [facility] 0 17:03:12 Gestatio n period, 35 weeks 74471985 Active 2016 35 weeks gestation of ;Practice ID: 0001 Not Available [facility] 0 17:03:13 Gestatio n period, 36 weeks 91205439 Active 2016 36 weeks gestation of ;Practice ID: 0001 Not Available [facility] 0 17:03:13 Pregnanc y, childbir th and puerperi um finding Active 2016 Encntr for suprvsn of normal first preg, third trimester ;Practice ID: 0001 Not Available [facility] 0 17:03:13 Gestatio n period, 37 weeks 93083625 Active 2016 37 weeks gestation of ;Practice ID: 0001 Not Available [facility] 0 17:03:13 Single live from singleto n pregnanc y 714780804 Active 2016 Single live ;Pra ctice ID: 0001 Not Available [facility] 0 17:03:14 Gestatio n period, 9 weeks 965322 Active 2016 9 weeks gestation of ;Recorded Elsewhere : No Locati on: [facility] So urce: EHR Chron ic: N Practic e ID: 0001 Bill able Time: 03:30:00 PM Not Available [facility] 0 17:03:15 Gestatio n period, 29 weeks 55533892 Active 2016 29 weeks gestation of ;Recorded Elsewhere : No Locati on: [facility] So urce: EHR Chron ic: N Practic e ID: 0001 Bill able Time: 08:30:00 AM Not Available [facility] 0 17:03:15 Gestatio n period, 30 weeks 92558271 Active 2016 30 weeks gestation of ;Recorded Elsewhere : No Locati on: [facility] So urce: EHR Chron ic: N Practic e ID: 0001 Bill able Time: 09:00:00 AM Not Available [facility] 0 17:03:16 Gestatio n period, 25 weeks 46776939 Active 2016 25 weeks gestation of ;Recorded Elsewhere : No Locati on: [facility] So urce: EHR Chron ic: N Practic e ID: 0001 Bill able Time: 04:15:00 PM Not Available [facility] 0 17:03:17 Gestatio n period, 31 weeks 33556876 Active 2016 31 weeks gestation of ;Recorded Elsewhere : No Locati on: [facility] So urce: EHR Chron ic: N Practic e ID: 0001 Bill able Time: 10:00:00 AM Not Available [facility] 0 17:03:[address] Concept Active 2016 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; Recorded Elsewhere : No Locati on: [facility] So urce: EHR Chron ic: N Practic e ID: 0001 Bill able Time: 08:30:00 AM Not Available [facility] 0 17:03:[address] Concept Active 2016 Maternal care for oth abnormali ty and damage, unsp;Figueroa rded Elsewhere : No Locati on: [facility] So urce: EHR Chron ic: N Practic e ID: 0001 Bill able Time: 01:45:00 PM Not Available [facility] 0 17:03:18 Gestatio n period, 28 weeks 12717906 Active 2016 28 weeks gestation of ;Recorded Elsewhere : No Locati on: [facility] So urce: EHR Chron ic: N Practic e ID: 0001 Bill able Time: 11:30:00 AM Not Available [facility] 0 17:03:19 Gestatio n period, 23 weeks 43862225 Active 2016 23 weeks gestation of ;Recorded Elsewhere : No Locati on: [facility] So urce: EHR Chron ic: N Practic e ID: 0001 Bill able Time: 01:45:00 PM Not Available [facility] 0 17:03:19 Pregnanc y detectio n examinat ion Active 2016 Encounter for test, result positive; Practice ID: 0001 Not Available [facility] 0 17:03:19 Complica tion of pregnanc y, childbir th and/or puerperi um 277579290 Active 2016 Oth diseases and condition s compl preg/chld brth;Prac barrett ID: 0001 Not Available [facility] 0 17:03:20 Gestatio n period, 18 weeks 82238371 Active 2016 18 weeks gestation of ;Practice ID: 0001 Not Available [facility] 0 17:03:20 Pregnanc y, childbir th and puerperi um finding Active 2016 Encntr for suprvsn of normal first preg, second trimester ;Practice ID: 0001 Not Available [facility] 0 17:03:20 Gestatio n period, 24 weeks 866593227 Active 2016 24 weeks gestation of ;Practice ID: 0001 Not Available [facility] 0 17:03:21 Gestatio n period, 26 weeks 71194643 Active 2016 26 weeks gestation of ;Practice ID: 0001 Not Available [facility] 0 17:03:22 Gestatio n period, 27 weeks 19363423 Active 2016 27 weeks gestation of ;Practice ID: 0001 Not Available [facility] 0 17:03:23 Localize d swelling , mass and lump, neck Active 2016 Localized swelling, mass and lump, neck;Figueroa rded Elsewhere : No Locati on: [facility] So urce: EHR Chron ic: N Practic e ID: 0001 Bill able Time: 02:30:00 PM Not Available [facility] 0 17:03:26 Pregnanc y 54364671 Active 2023 Candy Moody null, [facility] 4 14:41:24 growth restrict ion 10782963 Active history in a previous testing at 32wks Tania Arteaga null, [facility] 5 13:51:28 labor without delivery 26175304520 063480 Active Brian Smith MD [address], [place], [address], [facility] 4 15:00:20 History of calculus of kidney 498876859 Active Brian Smith MD [address], [place], [address], [facility] 4 15:00:59 Infectio n by Trichomo ady 33397421 Active 2023 MARY around 08/04/24 Jossy De La Cruzblessing er null, [facility] 4 17:31:08 Infectio n by Trichomo ady 98297256 Active 2023 MARY around 08/04/24 Jossy Tobin er null, [facility] 4 17:31:08 Thromboc ytosis 5594882 Active rpt CBC 1 month elevated - 06/20 & 07/06 & 09/09 Tania Arteaga [facility], [facility] 5 18:01:37 Thromboc ytosis 9802283 Active rpt CBC 1 month elevated - 06/20 & 07/06 & 09/09 Tania Arteaga [facility], [facility] 5 18:01:37 Dizzines s 355326868 Active Brian Smith MD [address], [place], [address], [facility] 5 11:49:37 Headache 45842366 Active Brian Smith MD [address], [place], [address], [facility] 5 11:49:44 Edema 335747639 Active Brian Smith MD [address], [place], [address], [facility] 5 12:04:51 Carpal tunnel syndrome 83175108 Active braces prescribe d Brian Smith MD [address], [place], [address], [facility] 5 12:05:21 Chronic back pain 688783423 Active for fractures of her vertebrae prior to , was scheduled for fixation of her vertebrae Brian Smith MD [address], [place], [address], [facility] 5 15:34:58 Notes:Encounter for antenata l screening of mother Recorded Elsewhere: No Location: [facility] Source: EHR Chronic: N Practice ID: [id number] Billable Time: 04:45:00 PM Encounter for screening of mother Practice ID: 0001 Encounter for screening of mother Recorded Elsewhere: No Location: [facility] Source: EHR Chronic: N Practice ID: 0001 Billable Time: 03:00:00 PM Encounter for screening of mother Practice ID: 0001 Problem Notes None recorded. Procedures Surgical History None recorded. Imaging Results Imaging Date Name Status LastModified by Organiz ation Details LastModified Time 11/24/2024 US, obstetric, biophysical profile + non-stress test completed [address], [place], [address], 11/24/2024 17:14:44 11/24/2024 US, obstetric, biophysical profile + non-stress test completed [email or web address] [address], [place], [address], 11/24/2024 15:37:50 11/24/2024 non-stress test completed [email or web address] [place] [address], [place], [address], 11/25/2024 21:47:09 11/25/2024 non-stress test completed [email or web address] [place] [address], [place], [address], 11/25/2024 10:57:05 12/01/2024 US, obstetric, follow-up completed [email or web address] [place] [address], [place], [address], 12/01/2024 17:07:50 12/01/2024 US, obstetric, biophysical profile + non-stress test completed [email or web address] [place] [address], [place], [address], 12/01/2024 17:08:06 12/01/2024 US, obstetric, follow-up completed [email or web address] [address], [place], [address], 12/01/2024 21:20:34 12/01/2024 non-stress test completed [email or web address] [place] [address], [place], [address], 12/01/2024 15:22:31 12/08/2024 US, obstetric, biophysical profile + non-stress test completed [email or web address] [place] [address], [place], [address], 12/08/2024 16:27:31 12/08/2024 US, obstetric, biophysical profile + non-stress test completed [email or web address] [address], [place], [address], 12/08/2024 22:48:24 12/08/2024 non-stress test completed [email or web address] [place] [address], [place], [address], 12/08/2024 16:24:41 12/15/2024 US, obstetric, biophysical profile + non-stress test completed [email or web address] [place] [address], [place], [address], 12/15/2024 14:49:02 12/15/2024 US, obstetric, biophysical profile + non-stress test completed [email or web address] [address], [place], [address], 12/15/2024 21:35:52 12/19/2024 non-stress test active [email or web address] [place] [address], [place], [address], 12/19/2024 10:45:26 12/20/2024 US, obstetric, biophysical profile + non-stress test completed [email or web address] [place] [address], [place], [address], 12/20/2024 09:15:54 12/22/2024 US, obstetric, follow-up completed [email or web address] [address], [place], [address], 12/26/2024 23:15:02 12/23/2024 US, obstetric, biophysical profile + non-stress test completed [email or web address] [place] [address], [place], [address], 12/23/2024 13:30:33 12/27/2024 non-stress test completed [email or web address] [place] [address], [place], [address], 12/27/2024 11:50:24 12/27/2024 US, obstetric, biophysical profile + non-stress test completed [email or web address] [place] [address], [place], [address], 12/27/2024 11:29:41 12/29/2024 US, obstetric, biophysical profile + non-stress test completed [email or web address] [place] [address], [place], [address], 12/29/2024 15:01:58 12/29/2024 US, obstetric, biophysical profile + non-stress test active [email or web address] [address], [place], [address], 12/31/2024 23:37:29 01/02/2025 non-stress test completed [email or web address] [place] [address], [place], [address], 01/02/2025 10:35:44 Procedure Notes None recorded. Medical Equipment None Reported. Allergies Allergen ID Allergen Name Allergen Category Reaction Reaction Severity Criticality Documentation Date Start Date Code Code System Note Provider Name and Address Organization Details Recorded Time 94752 amoxicill in medicatio n hives severe Not available 05/27/2024 723 RxNorm Tania Arteaga [place], [place] - [facility] 16:13:31 Medications Name Sig Start Date Stop Date Status Note LastModified by Organization Details LastModified Time cyclobenz aprine 10 mg tablet take 1 tablet by oral route 2 times every day 2024 active Not Available Not Available Not Avai lable azithromy raffy 250 mg tablet 09/09 completed Not Available Not Available Not Available fluconazo le 150 mg tablet Take 1 tablet every day by oral route as directed for 1 day. 06/20 completed Not Available Not Available Not Available hydrocodo ne 5 mg-acetam inophen 325 mg tablet 06/20 completed Not Available Not Available Not Available Loestrin 1.5/30 (21) 1.5 mg-30 mcg tablet take 1 tablet by oral route every day 05/24 completed Prescrib ed Elsewher e: No Locat ion: [facility] odify By: [email or web address] huerta DateTime : 09/09/19 18 01:45:00 PM Not Available Not Available Not Available prazosin 1 mg capsule 05/24 completed Not Available Not Available Not Available metronida zole 500 mg tablet Take 1 tablet twice a day by oral route for 7 days. 08/04 completed Not Available Not Available Not Available tramadol 50 mg tablet 05/24 completed Not Available Not Available Not Available butalbita l-acetami nophen-ca ffeine 50 mg-325 mg-40 mg tablet take 1 - 2 tablet by oral route every 4 hours as needed not to exceed 6 tablets per 24hrs 06/20 completed Prescrib ed Elsewher e: No Locat ion: [facility] odify By: [email or web address] Encounte r DateTime : 07/20/20 17 09:30:00 AM Not Available Not Available Not Available lorazepam 0.5 mg tablet 05/24 completed Not Available Not Available Not Available cephalexi n 500 mg capsule Take 1 capsule twice a day by oral route for 7 days. 07/04 completed Not Available Not Available Not Available norethind dav acetate 1 mg-ethiny l estradiol 20 mcg tablet take 1 tablet by oral route every day 05/24 completed Prescrib ed Elsewher e: No Locat ion: [facility] odify By: [email or web address] Encounte r DateTime : 09/09/19 18 01:45:00 PM Not Available Not Available Not Available gabapenti n 100 mg capsule 05/24 completed Not Available Not Available Not Available SSD 1 % topical cream 06/20 completed Not Available Not Available Not Available ondansetr on 4 mg disintegr ating tablet 09/09 completed Not Available Not Available Not Available naproxen 500 mg tablet 06/20 completed Not Available Not Available Not Available progester one micronize d 100 mg capsule Take 1 capsule every day by oral route. 07/04 completed Not Available Not Available Not Available aripipraz ole 10 mg tablet 05/24 completed Not Available Not Available Not Available aripipraz ole 5 mg tablet 05/24 completed Not Available Not Available Not Available mirtazapi ne 7.5 mg tablet 05/24 completed Not Available Not Available Not Available nitrofura ntoin monohydra te/macroc rystals 100 mg capsule Take 1 capsule every 12 hours by oral route as directed for 7 days. 06/20 completed Not Available Not Available Not Available active Not Available Not Avai lable Not Available butalbita l-acetami nophen-ca ffeine 50 mg-300 mg-40 mg capsule Take 1 capsule every 4 hours by oral route. active Not Available Not Available No t Available 28 mg iron-800 mcg tablet 10/14 completed Prescrib ed Elsewher e: Yes Loca tion: [facility] M odfran By: [email or web address] z Encoun bradley DateTime : 01/08/20 17 08:30:00 AM Not Available Not Available Not Available Vitals Date Recorded Body height Body mass index (BMI) Body weight Body height Body mass index (BMI) Body weight Systolic blood pressure Diastolic blood pressure Systolic blood pressure Diastolic blood pressure Provider Name and Address Organization Details Last Updated DateTime 160.02 cm 39.1 kg/m2 914631. 91 g 160.02 cm 39.1 kg/m2 196752. 91 g 118 mm[Hg] 80 mm[Hg] 118 mm[Hg] 80 mm[Hg] Candy [facility] 11:27:27 Date Recorded Body height Body mass index (BMI) Body weight Systolic blood pressure Diastolic blood pressure Provider Name and Address Organization Details Last Updated DateTime 12/29/2024 160.02 cm 39.3 kg/m2 382498.5 1 g 116 mm[Hg] 78 mm[Hg] [facility] 10:09:53 Social History Question Answer Notes LastModified by Organizat ion Details LastModified Time Tobacco Smoking Status Never Smoker Danni chambers [facility] 05/24/2024 15:45:03 Are You Blind Or Do You Have Difficulty Seeing? No Information n ot available 05/24/2024 In The 14 Days Before Symptom Onset, Have You Had Close Contact With A Laboratory-confirm ed COVID-19 While That Case Was Ill? No Information n ot available 05/24/2024 In The 14 Days Before Symptom Onset, Have You Had Close Contact With A Person Who Is Under Investigation For COVID-19 While That Person Was Ill? No [email or web address] Information not available 05/24/2024 Have You Been To An Area Known To Be High Risk For COVID-19? No Information not available 05/24/2024 Are You Deaf Or Do You Have Serious Difficulty Hearing? No [email or web address] Information not available 05/24/2024 Are You Sexually Active? Yes [email or web address] Information not available 05/24/2024 Do You Have Smoke And Carbon Monoxide Detectors In Your Home? Yes [email or web address] Information not available 05/24/2024 Do You Use Sunscreen Routinely? Yes [email or web address] Information not available 05/24/2024 Sex: Unknown Functional Status Question Answer Note LastModified by Organizat ion Details LastModified Time Do you have difficulty walking or climbing stairs? No [email or web address] Information not available 05/24/2024 Are you able to walk? [email or web address] Information not available 05/24/2024 Are you able to care for yourself? Yes [email or web address] Information not available 05/24/2024 Do you have difficulty dressing or bathing? No [email or web address] Information not available 05/24/2024 Mental Status None recorded. Family History Relationship Description Onset Age of this Age Resolved Age Notes LastModified by Organization Details LastModified Time Maternal Grandmother Malignant tumor of breast [email or web address] Not available 2023 15:48:43 Mother Hypertensive disorder [email or web address] Not available 2023 15:49:08 Father Hypertensive disorder Not available 2023 15:49:08 Father Malignant neoplasm of lung [email or web address] Not available 2023 15:49:33 Sister Hypertensive disorder [email or web address] Not available 2023 15:49:08 Sister Cyst of ovary Not available 2023 15:49:46 Notes:Father: Heart disease Mother: Hypertension, Heart disease, kidney problems Medical History Condition Response Allergies (Food, seasonal, environmental ) N Other N Breast Cancer N Drug/Latex Allergies/Reactions N Blood Transfusion N Dermatologic Disorders N Lung Disease N Defects or Inherited Disease N Breast Problem N Gestational Diabetes N Hematologic disorders N Anesthesia Complications N History of STI Y Deep Vein Thrombosis N Polycystic ovary syndrome N Anxiety Disorder N Autoimmune disease N Arthritis N Infertility N Polyps N Acid Reflux (GERD) N History of abnormal pap N Cancer N Stroke N Varicosities N Neurologic/Epilepsy N Endometriosis N High Cholesterol N Headaches N Fibromyalgia N Kidney Disease N Heart Problems N Kidney or Bladder Problems N Thyroid Problems N GI Problems N Eating Disorder N Anemia N Art (IVF or FET) N Psychiatric Illness N Ovarian Cancer N Diabetes N Pulmonary (TB, Asthma) N Hepatitis/Liver Disease N No Past Medical History N Eczema N Urinary Tract Infection N Abuse/Domestic Violence N Asthma N Trauma/Violence N Depression/ depression N Heart Disease N Pre-Eclampsia N Hypertension N Osteoporosis N Thrombophilias N Gynecological History Statement/Question Response Abnormal Pap N Date of LMP 04/22/2024 Sexually Active? Y STIs/STDs Y Age of first menstrual cycle 17 HPV Vaccine Y Date of Last Pap Smear Sexual Problems? N Current Control Method LMP Unknown Obstetrics History GPAL:G 5 P 0 0 3 1 Type Value Spontaneous 3 Living 1 Total 5 Past Encounters Encounter ID Performer Location Encounter Start Date Encounter Closed Date Diagnosis/Indication Diagnosis SNOMED-CT Code Diagnosis ICD10 Code Diagnosis Note [id number] Brian Smith MD [facility] [address] [address] 05/24/2024 15:07:40 05/24/2024 17:23:23 Uterine size for dates discrepancy 996103980 O26.849 [id number] KENNY MONTANO MD [facility] [address] [address] 05/24/2024 15:21:35 05/24/2024 16:35:12 test positive 831821196 Z32.01 1. Exam today within normal limits.2. Ultrasound today confirms GA and viability. EDC . GC/Clamyyoav a testing done: will f/u as indicated. 4. ACOG guidelines and plan of care for reviewed with patient. All questions answered.5 . Return to office at 10 weeks for new OB visit, patient desires earlier US6. Will need new OB labs at next visit.7. Genetic screening: desires, will draw at 10 weeks with next visit [id number] Brian Smith MD [facility] [address],[place] [address] 06/20/2024 14:05:03 06/20/2024 14:32:22 [id number] Brian Smith MD [facility] [address],[place] [address] 06/20/2024 14:05:24 06/20/2024 15:22:41 Urinary symptoms 514587400 R39.9 Recurrent miscarriage 10 8940857 N96 Amenorrhea 71392864 N91. 2 this patient is a 29-year-ol d female who presents for amenorrhea . She is a positive test. Ultrasound revealed a 1st trimester gestation. Patient has no complaints . We talked about early care. Talked about genetic screening. We talked about her ultrasound results. We talked about the 12 week ultrasound that has genetic screening components . She was given recommenda tions on exercise, diet, over-the-c ounter medication s. We reviewed her obstetric history. We reviewed her medical history. We reviewed her social history. She will begin routine care at her next visit. [id number] Brian Smith MD [facility] [address],[place] [address] 07/04/2024 14:03:51 07/04/2024 14:44:05 screening 887853058 Z36.82 Z3A.12 [id number] Brian Smith MD [facility] [address],[place] [address] 07/04/2024 14:04:12 07/04/2024 15:23:42 Routine care 258429236 Z34.90 [id number] Brian Smith MD [facility] [address],[place] [address] 08/04/2024 13:53:17 08/04/2024 14:50:50 Thrombocytosis 7599081 D75.839 Routine an tenatal care 843047433 Z34.90 [id number] MD Katerina Auguste [address],[place] [address] 09/06/2024 12:57:48 09/06/2024 14:10:36 screening for malformation 625716688 Z36.3 Z3A.21 [id number] MD Katerina Auguste [address],[place] [address] 09/09/2024 10:51:36 09/09/2024 11:59:31 Headache 58225342 R51.9 Thrombocytosis 4603094 D 75.839 Routine an tenatal care 578441300 Z34.90 [id number] MD Katerina Auguste [address],[place] [address] 10/07/2024 10:32:11 10/07/2024 11:30:41 Past history of small for gestational age baby 278106674 Z87.59 Z03.74 Z3A.26 [id number] MD Katerina Auguste [address],[place] [address] 10/07/2024 10:32:54 10/07/2024 12:43:41 Bilateral carpal tunnel syndrome 3960960471 8452152 G56.03 Routine an tenatal care 671267076 Z34.90 [id number] MD Katerina Auguste [address],[place] [address] 10/17/2024 10:09:23 10/17/2024 15:09:43 Routine care 122525054 Z34.90 [id number] MD Katerina Auguste [address],[place] [address] 10/31/2024 15:07:07 10/31/2024 16:24:18 care: poor obstetric history 290696080 O09.293 Z3A.29 [id number] MD Katerina Auguste [address],[place] [address] 10/31/2024 15:07:34 11/01/2024 07:53:54 Thrombocytosis 2862936 D75.839 Routine an tenatal care 096877294 Z34.90 [id number] MD Katerina Auguste [address],[place] [address] 11/24/2024 14:53:52 11/24/2024 15:23:00 Past history of small for gestational age baby 421954594 Z87.59 Z3A.33 [id number] MD Katerina Auguste [address],[place] [address] 11/24/2024 14:54:34 11/25/2024 03:52:55 growth restriction 94421017 O36.5999 [id number] MD Katerina Auguste [address],[place] [address] 11/24/2024 14:55:00 11/24/2024 16:43:02 Routine care 775115453 Z34.90 [id number] MD Katerina Auguste [address],[place] [address] 12/01/2024 13:51:50 12/01/2024 14:35:41 Medical examination for suspected condition 827085234 Z03.74 Z3A.34 [id number] MD Katerina Auguste [address],[place] [address] 12/01/2024 13:52:22 12/01/2024 15:37:50 growth restriction 27077414 O36.5999 [id number] MD Katerina Auguste [address],[place] [address] 12/01/2024 13:52:34 12/01/2024 15:37:44 Routine care 607708323 Z34.90 [id number] MD Katerina Auguste [address],[place] [address] 12/08/2024 13:54:02 12/08/2024 14:32:00 Past history of small for gestational age baby 523032174 Z87.59 Z3A.35 [id number] MD Katerina Auguste [address],[place] [address] 12/08/2024 13:54:25 12/08/2024 16:29:04 growth restriction 59945898 O36.5999 [id number] MD Katerina Auguste [address],[place] [address] 12/08/2024 13:54:38 12/08/2024 15:54:35 Routine care 136898203 Z34.90 [id number] MD Katerina Auguste [address],[place] [address] 12/15/2024 13:50:18 12/15/2024 14:40:07 care: obstetric risk 086028010 O09.293 O99.891 O99.213 Z3A.36 [id number] MD Katerina Auguste [address],[place] [address] 12/15/2024 13:50:38 12/19/2024 12:53:34 growth restriction 31814217 O36.5990 [id number] MD Katerina Auguste [address],[place] [address] 12/15/2024 13:50:52 12/15/2024 16:01:44 Chronic low back pain 800520723 M54.50 G89.29 care status 24 7397382 Z34.83 [id number] MD Katerina Auguste [address],[place] [address] 12/22/2024 13:32:43 12/23/2024 15:19:52 History of previous intrauterine growth restricted 0678129384 92798 Z87.59 O09.293 Z3A.37 [id number] MD Katerina Auguste [address],[place] [address] 12/22/2024 13:34:50 12/29/2024 03:52:25 growth restriction 47200958 O36.5990 [id number] Brian Smith MD [facility] [address],[place] [address] 12/22/2024 13:36:10 12/23/2024 08:54:05 [id number] MD Katerina Auguste [address],[place] [address] 12/29/2024 13:52:50 12/29/2024 14:28:11 care: obstetric risk 560599683 O09.293 Z3A.38 [id number] Brian Smith MD [facility] [address],[place] [address] 12/29/2024 13:59:08 01/04/2025 03:53:19 growth restriction 82780194 O36.5990 [id number] Brian Smith MD [facility] [address],[place] [address] 12/29/2024 14:00:01 12/29/2024 21:33:03 Health Concerns Section Related Observation LastModified by Organization Detai ls LastModified Time None Recorded Concern Status LastModified by Organization Details LastModified Time None Recorded Advance Directives Directive None Recorded Payers Encounter Date Sequence Insurance Name Policy Number Policy Posadas Covered Member ID Posadas Member ID Guarantor Name 12/22/2024 1 [facility] (MEDICAID HMO) [id number] Jessica Nein [id number] Jessica Nein 12/22/2024 1 [facility] (MEDICAID HMO) [id number] Jessica Nein [id number] Jessica Nein 12/29/2024 1 [facility] (MEDICAID HMO) [id number] Jessica Nein [id number] Jessica Nein 12/29/2024 1 [facility] (MEDICAID HMO) [id number] Jessica Nein [id number] Jessica Nein 12/29/2024 1 [facility] (MEDICAID HMO) [id number] Jessica Nein [id number] Jessica Nein OBGyn Episode Ob Episode Information Episode Created Date Number of Fetuses Patient Bloodtype Patient rh Status Prepregnancy Weight lbs Domestic Partner Domestic Partner Phone Father Name Skinning Machine Feeder Status 05/24/20 24 1 CLOSED Fetus Data First Name Last Name Admitted to NICU Weight (g) Sex Living Outcome Pediatric Complications Fetus ID Race Codes Race Delivery Type , Spontane ous [id number] Cr Calculation Initial Cr Date Initial Exam Date Initial Exam Provider Initial Ultrasound Date Last Menstrual Period Date Ultra Sound Weeks Gestation 0 Eighteen To Twenty Week Cr Update Ultra Sound Date Fundal Height At Umbil Quickening Date Ultra Sound Latest Weeks Gestation Final Cr Confirmed By Final Cr Confirmed Date Final Cr Date Ultra Sound Latest Days Gestation 0 0 Menstrual History Last Menstrual Date Menses Monthly On Bcp Conception Prior Menses Frequency Hcg Plus Date Menarche Onset Age Delivery Information Delivery Date Delivery Type Labor Anesthesia Weeks Gestation Incision Type Labor Labor Length Hrs Delivered By Post Complications Tubal Sterilization Discharge Date Comments 6 Discharge Information Feeding Method Contraceptive Method Maternal HG B and HCT Levels Ob Episode Information Episode Created Date Number of Fetuses Patient Bloodtype Patient rh Status Prepregnancy Weight lbs Domestic Partner Domestic Partner Phone Father Name Skinning Machine Feeder Status 07/04/20 24 1 A Positive 172 OPEN Fetus Data First Name Last Name Admitted to NICU Weight (g) Sex Living Outcome Pediatric Complications Fetus ID Race Codes Race Delivery Type [id number] Problems Problem Notes Problem Name Start Date End Date Resolution Snomed Code Not e History of calculus of kidney 503622264 labor without delivery [id number] Edema 638525616 Carpal tunnel syndrome 79771103 braces prescribed Chronic back pain 998883537 fo r fractures of her vertebrae prior to , was scheduled for fixation of her vertebrae growth restriction 43526979 history in a previous testing at 32wks Infection by Trichomonas 06/20/2024 [id number] MARY around 08/04/24 Thrombocytosis 6133761 rpt C BC 1 month elevated - 06/20 & 07/06 & 09/09 Dizziness 246158621 Headache 23468744 Cr Calculation Initial Cr Date Initial Exam Date Initial Exam Provider Initial Ultrasound Date Last Menstrual Period Date Ultra Sound Weeks Gestation 07/04/2024 06/20/2024 04/22/2024 6 Eighteen To Twenty Week Cr Update Ultra Sound Date Fundal Height At Umbil Quickening Date Ultra Sound Latest Weeks Gestation Final Cr Confirmed By Final Cr Confirmed Date Final Cr Date Ultra Sound Latest Days Gestation 0 01/12/20 25 0 Pre-alejandrina Flowsheet Flowsheet Date 07/04/2024 Hall Score Blood Edema Fundus Height Fundus Units Glucose Ketones Leukocytes Nitrite Labor Signs Protein Cervic Dilation Cervic Effacement Cervic Station Type Weight in lbs Pre/Post Dialysis Refused Weight 195.497710448625 BP Diastolic BP Location Tested BP Systolic BP Type 80 L arm 120 sitting Fetus Heart Rate Present A 144 Fetus Movement A No Comments this patient is a 29-year-ol d multiparous female at 12 weeks' gestation who presents for initial care. She has a history of term vaginal births. Her medical, surgical, obstetric history is unremarkable. She is vaccinated. She was given precautions recommendations for . We talked about vaccines in . Talked about care in detail. She is having genetic testing. She had a normal 12 week ultrasound. To begin routine care.possible growth restriction and threatened labor. Flowsheet Date 08/04/2024 Hall Score Blood Edema Fundus Height Fundus Units Glucose Ketones Leukocytes Nitrite Labor Signs Protein Cervic Dilation Cervic Effacement Cervic Station 154 cm Type Weight in lbs Pre/Post Dialysis Refused 201.861154636315 BP Diastolic BP Location Tested BP Systolic BP Type 72 L arm 113 sitting Fetus Heart Rate Present Fetus Movement A Yes Comments no complaints, no problems, routine care, no contractions, no vaginal bleeding, no loss of fluid, no cramping Flowsheet Date 09/06/2024 Hall Score Blood Edema Fundus Height Fundus Units Glucose Ketones Leukocytes Nitrite Labor Signs Protein Cervic Dilation Cervic Effacement Cervic Station Type Weight in lbs Pre/Post Dialysis Refused BP Diastolic BP Location Tested BP Systolic BP Type Fetus Heart Rate Present Fetus Movement Comments Flowsheet Date 09/09/2024 Hall Score Blood Edema Fundus Height Fundus Units Glucose Ketones Leukocytes Nitrite Labor Signs Protein Cervic Dilation Cervic Effacement Cervic Station Type Weight in lbs Pre/Post Dialysis Refused 202.945607066425 BP Diastolic BP Location Tested BP Systolic BP Type 79 L arm 120 sitting Fetus Heart Rate Present A 144 Fetus Movement A Yes Comments no complaints, no problems, routine care, no contractions, no vaginal bleeding, no loss of fluid, no cramping discussed dizziness, given recommendation discussed headache -treated, given recommendations Flowsheet Date 10/07/2024 Hall Score Blood Edema Fundus Height Fundus Units Glucose Ketones Leukocytes Nitrite Labor Signs Protein Cervic Dilation Cervic Effacement Cervic Station Type Weight in lbs Pre/Post Dialysis Refused BP Diastolic BP Location Tested BP Systolic BP Type Fetus Heart Rate Present Fetus Movement Comments Flowsheet Date 10/07/2024 Hall Score Blood Edema Fundus Height Fundus Units Glucose Ketones Leukocytes Nitrite Labor Signs Protein Cervic Dilation Cervic Effacement Cervic Station Type Weight in lbs Pre/Post Dialysis Refused 205.676592978248 BP Diastolic BP Location Tested BP Systolic BP Type 76 L arm 118 sitting Fetus Heart Rate Present A 145 Fetus Movement A Yes Comments patient has marked edema. Tere serrano has swelling in her feet after working. She gets numbness and color changes in her toes. Along with carpal tunnel syndrome. Waking at night with pain. Wrist braces were prescribed. She is going to reduce activity in the coming weeks. Flowsheet Date 10/17/2024 Hall Score Blood Edema Fundus Height Fundus Units Glucose Ketones Leukocytes Nitrite Labor Signs Protein Cervic Dilation Cervic Effacement Cervic Station 27 cm Type Weight in lbs Pre/Post Dialysis Refused 210.882403789055 BP Diastolic BP Location Tested BP Systolic BP Type 72 L arm 113 sitting Fetus Heart Rate Present A 142 Present Fetus Movement A Yes Comments no complaints, no problems, routine care, no contractions, no vaginal bleeding, no loss of fluid, no cramping Flowsheet Date 10/31/2024 Hall Score Blood Edema Fundus Height Fundus Units Glucose Ketones Leukocytes Nitrite Labor Signs Protein Cervic Dilation Cervic Effacement Cervic Station Type Weight in lbs Pre/Post Dialysis Refused BP Diastolic BP Location Tested BP Systolic BP Type Fetus Heart Rate Present Fetus Movement Comments Flowsheet Date 10/31/2024 Hall Score Blood Edema Fundus Height Fundus Units Glucose Ketones Leukocytes Nitrite Labor Signs Protein Cervic Dilation Cervic Effacement Cervic Station Type Weight in lbs Pre/Post Dialysis Refused 215.694679233288 BP Diastolic BP Location Tested BP Systolic BP Type 75 L arm 112 sitting Fetus Heart Rate Present A 156 Present Fetus Movement A Yes Comments no complaints, no problems, routine care, no contractions, no vaginal bleeding, no loss of fluid, no cramping. growth ultrasound today Flowsheet Date 11/24/2024 Hall Score Blood Edema Fundus Height Fundus Units Glucose Ketones Leukocytes Nitrite Labor Signs Protein Cervic Dilation Cervic Effacement Cervic Station Type Weight in lbs Pre/Post Dialysis Refused BP Diastolic BP Location Tested BP Systolic BP Type Fetus Heart Rate Present Fetus Movement Comments Flowsheet Date 11/24/2024 Hall Score Blood Edema Fundus Height Fundus Units Glucose Ketones Leukocytes Nitrite Labor Signs Protein Cervic Dilation Cervic Effacement Cervic Station Type Weight in lbs Pre/Post Dialysis Refused 217.731531961671 BP Diastolic BP Location Tested BP Systolic BP Type 75 L arm 114 sitting Fetus Heart Rate Present Fetus Movement A Yes Comments Flowsheet Date 11/24/2024 Hall Score Blood Edema Fundus Height Fundus Units Glucose Ketones Leukocytes Nitrite Labor Signs Protein Cervic Dilation Cervic Effacement Cervic Station Type Weight in lbs Pre/Post Dialysis Refused 217.818427996615 BP Diastolic BP Location Tested BP Systolic BP Type 75 L arm 114 sitting Fetus Heart Rate Present A 144 Fetus Movement A Yes Comments no complaints, no problems, routine care, no contractions, no vaginal bleeding, no loss of fluid, no cramping Flowsheet Date 12/01/2024 Hall Score Blood Edema Fundus Height Fundus Units Glucose Ketones Leukocytes Nitrite Labor Signs Protein Cervic Dilation Cervic Effacement Cervic Station Type Weight in lbs Pre/Post Dialysis Refused BP Diastolic BP Location Tested BP Systolic BP Type Fetus Heart Rate Present Fetus Movement Comments Flowsheet Date 12/01/2024 Hall Score Blood Edema Fundus Height Fundus Units Glucose Ketones Leukocytes Nitrite Labor Signs Protein Cervic Dilation Cervic Effacement Cervic Station Type Weight in lbs Pre/Post Dialysis Refused Weight 216.641489446386 BP Diastolic BP Location Tested BP Systolic BP Type 85 135 sitting Fetus Heart Rate Present Fetus Movement Comments Flowsheet Date 12/01/2024 Hall Score Blood Edema Fundus Height Fundus Units Glucose Ketones Leukocytes Nitrite Labor Signs Protein Cervic Dilation Cervic Effacement Cervic Station Type Weight in lbs Pre/Post Dialysis Refused 216.541635539257 BP Diastolic BP Location Tested BP Systolic BP Type 85 L arm 135 sitting Fetus Heart Rate Present Fetus Movement A Yes Comments back pain, to reach out to Elda Baugh of [facility] to get recommendations on pain control. Patient has a history of for fractures in 2 was to have back surgery for fusions of her vertebrae Flowsheet Date 12/08/2024 Hall Score Blood Edema Fundus Height Fundus Units Glucose Ketones Leukocytes Nitrite Labor Signs Protein Cervic Dilation Cervic Effacement Cervic Station Type Weight in lbs Pre/Post Dialysis Refused BP Diastolic BP Location Tested BP Systolic BP Type Fetus Heart Rate Present Fetus Movement Comments Flowsheet Date 12/08/2024 Hall Score Blood Edema Fundus Height Fundus Units Glucose Ketones Leukocytes Nitrite Labor Signs Protein Cervic Dilation Cervic Effacement Cervic Station Type Weight in lbs Pre/Post Dialysis Refused BP Diastolic BP Location Tested BP Systolic BP Type Fetus Heart Rate Present Fetus Movement Comments Flowsheet Date 12/08/2024 Hall Score Blood Edema Fundus Height Fundus Units Glucose Ketones Leukocytes Nitrite Labor Signs Protein Cervic Dilation Cervic Effacement Cervic Station 143 cm Type Weight in lbs Pre/Post Dialysis Refused 218.918106792629 BP Diastolic BP Location Tested BP Systolic BP Type 78 L arm 113 sitting Fetus Heart Rate Present A 144 Fetus Movement A Yes Comments no complaints, no problems, routine care, no contractions, no vaginal bleeding, no loss of fluid, no cramping Flowsheet Date 12/15/2024 Hall Score Blood Edema Fundus Height Fundus Units Glucose Ketones Leukocytes Nitrite Labor Signs Protein Cervic Dilation Cervic Effacement Cervic Station Type Weight in lbs Pre/Post Dialysis Refused BP Diastolic BP Location Tested BP Systolic BP Type Fetus Heart Rate Present Fetus Movement Comments Flowsheet Date 12/15/2024 Hall Score Blood Edema Fundus Height Fundus Units Glucose Ketones Leukocytes Nitrite Labor Signs Protein Cervic Dilation Cervic Effacement Cervic Station Type Weight in lbs Pre/Post Dialysis Refused Weight 221.783859890675 BP Diastolic BP Location Tested BP Systolic BP Type 78 L arm 113 sitting Fetus Heart Rate Present Fetus Movement A Yes Comments Flowsheet Date 12/15/2024 Hall Score Blood Edema Fundus Height Fundus Units Glucose Ketones Leukocytes Nitrite Labor Signs Protein Cervic Dilation Cervic Effacement Cervic Station Type Weight in lbs Pre/Post Dialysis Refused Weight 221.686748659028 BP Diastolic BP Location Tested BP Systolic BP Type 78 113 sitting Fetus Heart Rate Present A 144 Fetus Movement A Yes Comments no complaints, no problems, routine care, no contractions, no vaginal bleeding, no loss of fluid, no cramping Flowsheet Date 12/22/2024 Hall Score Blood Edema Fundus Height Fundus Units Glucose Ketones Leukocytes Nitrite Labor Signs Protein Cervic Dilation Cervic Effacement Cervic Station Type Weight in lbs Pre/Post Dialysis Refused BP Diastolic BP Location Tested BP Systolic BP Type Fetus Heart Rate Present Fetus Movement Comments Flowsheet Date 12/22/2024 Hall Score Blood Edema Fundus Height Fundus Units Glucose Ketones Leukocytes Nitrite Labor Signs Protein Cervic Dilation Cervic Effacement Cervic Station Type Weight in lbs Pre/Post Dialysis Refused Weight 221.027888818719 BP Diastolic BP Location Tested BP Systolic BP Type 80 L arm 118 sitting Fetus Heart Rate Present Fetus Movement Comments Flowsheet Date 12/22/2024 Hall Score Blood Edema Fundus Height Fundus Units Glucose Ketones Leukocytes Nitrite Labor Signs Protein Cervic Dilation Cervic Effacement Cervic Station Type Weight in lbs Pre/Post Dialysis Refused Weight 221.975456258718 BP Diastolic BP Location Tested BP Systolic BP Type 80 L arm 118 sitting Fetus Heart Rate Present A 156 Fetus Movement Comments no complaints, no problems, routine care, no contractions, no vaginal bleeding, no loss of fluid, no crampingj Flowsheet Date 12/29/2024 Hall Score Blood Edema Fundus Height Fundus Units Glucose Ketones Leukocytes Nitrite Labor Signs Protein Cervic Dilation Cervic Effacement Cervic Station Type Weight in lbs Pre/Post Dialysis Refused BP Diastolic BP Location Tested BP Systolic BP Type Fetus Heart Rate Present Fetus Movement Comments Flowsheet Date 12/29/2024 Hall Score Blood Edema Fundus Height Fundus Units Glucose Ketones Leukocytes Nitrite Labor Signs Protein Cervic Dilation Cervic Effacement Cervic Station Type Weight in lbs Pre/Post Dialysis Refused Weight 222.3783525325 BP Diastolic BP Location Tested BP Systolic BP Type 78 L arm 116 sitting Fetus Heart Rate Present Fetus Movement Comments Flowsheet Date 12/29/2024 Hall Score Blood Edema Fundus Height Fundus Units Glucose Ketones Leukocytes Nitrite Labor Signs Protein Cervic Dilation Cervic Effacement Cervic Station Type Weight in lbs Pre/Post Dialysis Refused BP Diastolic BP Location Tested BP Systolic BP Type Fetus Heart Rate Present Fetus Movement Comments Menstrual History Last Menstrual Date Menses Monthly On Bcp Conception Prior Menses Frequency Hcg Plus Date Menarche Onset Age 0804/22/2024 Delivery Information Delivery Date Delivery Type Labor Anesthesia Weeks Gestation Incision Type Labor Labor Length Hrs Delivered By Post Complications Tubal Sterilization Discharge Date Comments Discharge Information Feeding Method Contraceptive Method Maternal HG B and HCT Levels Ob Episode Information Episode Created Date Number of Fetuses Patient Bloodtype Patient rh Status Prepregnancy Weight lbs Domestic Partner Domestic Partner Phone Father Name Skinning Machine Feeder Status 05/24/20 1 CLOSED Fetus Data First Name Last Name Admitted to NICU Weight (g) Sex Living Outcome Pediatric Complications Fetus ID Race Codes Race Delivery Type , Spontane ous [id number] Cr Calculation Initial Cr Date Initial Exam Date Initial Exam Provider Initial Ultrasound Date Last Menstrual Period Date Ultra Sound Weeks Gestation 0 Eighteen To Twenty Week Cr Update Ultra Sound Date Fundal Height At Umbil Quickening Date Ultra Sound Latest Weeks Gestation Final Cr Confirmed By Final Cr Confirmed Date Final Cr Date Ultra Sound Latest Days Gestation 0 0 Menstrual History Last Menstrual Date Menses Monthly On Bcp Conception Prior Menses Frequency Hcg Plus Date Menarche Onset Age Delivery Information Delivery Date Delivery Type Labor Anesthesia Weeks Gestation Incision Type Labor Labor Length Hrs Delivered By Post Complications Tubal Sterilization Discharge Date Comments 2 Discharge Information Feeding Method Contraceptive Method Maternal HG B and HCT Levels Ob Episode Information Episode Created Date Number of Fetuses Patient Bloodtype Patient rh Status Prepregnancy Weight lbs Domestic Partner Domestic Partner Phone Father Name Skinning Machine Feeder Status 05/24/20 1 CLOSED Fetus Data First Name Last Name Admitted to NICU Weight (g) Sex Living Outcome Pediatric Complications Fetus ID Race Codes Race Delivery Type [id number] [id number] F Full Term [id number] Vaginal Delivery Cr Calculation Initial Cr Date Initial Exam Date Initial Exam Provider Initial Ultrasound Date Last Menstrual Period Date Ultra Sound Weeks Gestation 0 Eighteen To Twenty Week Cr Update Ultra Sound Date Fundal Height At Umbil Quickening Date Ultra Sound Latest Weeks Gestation Final Cr Confirmed By Final Cr Confirmed Date Final Cr Date Ultra Sound Latest Days Gestation 0 0 Menstrual History Last Menstrual Date Menses Monthly On Bcp Conception Prior Menses Frequency Hcg Plus Date Menarche Onset Age Delivery Information Delivery Date Delivery Type Labor Anesthesia Weeks Gestation Incision Type Labor Labor Length Hrs Delivered By Post Complications Tubal Sterilization Discharge Date Comments 7 Discharge Information Feeding Method Contraceptive Method Maternal HG B and HCT Levels Ob Episode Information Episode Created Date Number of Fetuses Patient Bloodtype Patient rh Status Prepregnancy Weight lbs Domestic Partner Domestic Partner Phone Father Name Skinning Machine Feeder Status 09/24/20 24 1 CLOSED Fetus Data First Name Last Name Admitted to NICU Weight (g) Sex Living Outcome Pediatric Complications Fetus ID Race Codes Race Delivery Type , Spontane ous [id number] Cr Calculation Initial Cr Date Initial Exam Date Initial Exam Provider Initial Ultrasound Date Last Menstrual Period Date Ultra Sound Weeks Gestation 0 Eighteen To Twenty Week Cr Update Ultra Sound Date Fundal Height At Umbil Quickening Date Ultra Sound Latest Weeks Gestation Final Cr Confirmed By Final Cr Confirmed Date Final Cr Date Ultra Sound Latest Days Gestation 0 0 Menstrual History Last Menstrual Date Menses Monthly On Bcp Conception Prior Menses Frequency Hcg Plus Date Menarche Onset Age Delivery Information Delivery Date Delivery Type Labor Anesthesia Weeks Gestation Incision Type Labor Labor Length Hrs Delivered By Post Complications Tubal Sterilization Discharge Date Comments 3 Discharge Information Feeding Method Contraceptive Method Maternal HG B and HCT Levels
--- OUTSIDE RECORDS SUMMARY | 2025-01-04 04:55 | XMS_ITS | Encounter Summary ---
Author Organization [facility] Address [address] [place] [id number] Care Team Providers Care Printing Press Operator Name Role Phone Pj Chavez MD Primary Care Provider [phone] Rich Zambrano MD Unavailable [phone] Encounter Details Date Type Department Care Team (Late st Contact Info) Description 02/05/2019 Abstract SFL CONVERSION [address] [place] [address] , Generic Sweetie, Social History Tobacco Use Types Packs/Day Years Used Date Smoking Tobacco: Never Smokeless Tobacco: Never Alcohol Use Standard Drinks/Week Comments Yes 0 (1 standard drink = 0.6 oz [...] Diagnoses Not on filedocumented in this encounter Additional Health Concerns Infection Onset Date Last Indicated Resolved Time COVID-19 Rule Out 05/14/2020 05/14/2020 05/16/2020 10:38 AM CDT COVID-19 Rule Out 09/20/2020 09/20/2020 09/20/2020 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
--- OUTSIDE RECORDS SUMMARY | 2025-01-04 04:55 | XMS_ITS | Clinical Summary ---
Author Organization [facility] Address [address] [place] [id number] Care Team Providers Care Coil Wrapper Name Role Phone Pj Chavez MD Primary Care Provider [phone] Allergies No known active allergies Medications LORazepam (ATIVAN) 0.5 mg tablet 05/23/2021 Activ e traMADoL (ULTRAM) 50 mg tablet 05/16/2021 Active Active Problems Problem Noted Date Diagnosed Date Recurrent UTI 05/27/2021 History of nephrolithiasis 05/27/2021 High-risk 07/13/2017 Small for dates affecting management of mother 0 04/27/2017 Medical History Medical History Date Comments Maternal care for other (ian pected) abnormality and damage, not applicable or unspecified Echogenic bowel of fetus - ( Added by TW Conv) Social History Tobacco Use Types Packs/Day Years Used Date Smoking Tobacco: Never Smokeless Tobacco: Never Comments Unknown Sex and Gender Information Value Date Recorded Sex Assigned at Not on file 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
--- OUTSIDE RECORDS SUMMARY | 2025-01-04 04:55 | XMS_ITS | Encounter Summary ---
Author Organization [facility] Address [address] [place] [address] Phone Care Team Providers Care Short Story Writer Name Role Phone Pj Chavez MD Primary Care Provider [phone] Encounter Details Date Type Department Care Team (Late st Contact Info) Description 05/27/2021 Telephone [facility] [place] [facility] [address] [place] [address] [address] [place] [phone] Zelda Mckinley CMA Social History Tobacco Use Types Packs/Day Years Used Date Smoking Tobacco: Never Smokeless Tobacco: Never Comments Unknown Sex and Gender Information Value Date Recorded Sex Assigned at Not on file 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
[2025-01-04 05:21] LABS: Basophils Absolute Auto 0.1 K/mm3 (0.0-0.1); Basophils Percent Auto 0.3 % (0.2-1.2); Eosinophils Absolute Auto 0.4 K/mm3 (0-0.3); Eosinophils Percent Auto 2.2 % (0-4.4); Hematocrit 33.2 % (37.0-47.0); Hemoglobin 9.8 g/dL (12.0-15.0); Immature Granulocyte Absolute 0.16 K/mm3 (0.00-0.031); Immature Granulocyte Percent A 0.9 % (0-0.5); Lymphocytes Absolute Auto 3.05 K/mm3 (0.9-3.2); Lymphocytes Percent Auto 17.5 % (18.3-44.2); Mean Corpuscular HGB Conc 29.5 g/dl (32-36); Mean Corpuscular Hemoglobin 22.6 pg (26-34); Mean Corpuscular Volume 76.7 fl (80-100); Mean Platelet Volume 9.8 fl (7.4-10.4); Monocytes Absolute Auto 0.9 K/mm3 (0.1-0.6); Monocytes Percent Auto 5.1 % (2.6-8.5); Neutrophils Absolute Auto 12.9 K/mm3 (1.3-6.7); Platelet Count Result 320 k/mm3 (150-375); Red Blood Count 4.33 M/mm3 (4.2-5.4); Red Cell Distribution Width 15.9 % (11.5-14.5); White Blood Count 17.4 K/mm3 (4.5-10.0)
--- NOTE | 2025-01-04 05:21 | LDADM ---
This patient, Jessica Dey, was admitted to Labor/Delivery/Recovery 103 on 01/04/25 at 04:49. Plans for labor, pain management and were discussed with patient. Patient/family oriented to hospital policies and general routines including ID bracelet, bed and alarms, visiting hours, pain management, procedures, bathroom and other care routines, personal items, smoking policy, room service/diet and guest tray routines, security routines, and visiting hours. Patient/Family are encouraged to report perceived risks to care and to ask questions if they do not understand what they are told or what they should do. See OBIX for further documentation.
[2025-01-04 05:34] LABS: Anisocytosis 1+; Band Neutrophils Percent 0 % (0-6); Hypochromasia 1+; Ovalocytes 1+; Platelet Estimate Adequate (Adequate); Schistocytes None Seen
[2025-01-04 06:05] LABS: Syphilis IgG/IgM Antibody Negative (Negative)
[2025-01-04 06:18] LABS: HIV 1/2 Ab P24 Ag Result Negative (Negative)
[2025-01-04] MEDS: LACTATED RINGERS 1,000 ML 125 ML IV CONT (06:56)
[2025-01-04] MEDS: OXYTOCIN 30 UNITS/NS 500 ML 30 UNITS/500 ML BAG IV CONT (07:02)
--- NOTE | 2025-01-04 07:59 | P.HPUP_ITS ---
History and Physical Update Update Date/Time: 01/04/25 07:59 Term presents for elective induction. Artificial rupture membranes- clear. Cervical exam: 2/20%/-3. Active management of labor. History and Physical has been reviewed, including an updated exam of the patient. There are NO changes in the patient's condition. Risks, benefits, and alternatives have been discussed and questions answered. Patient agrees to proceed with procedure.
[2025-01-04] MEDS: fentaNYL CITRATE INJ (*CRX) 100 MCG/2 ML VIAL 50 MCG IV PUSH ×2 (13:53→14:16)
[2025-01-04] MEDS: fentaNYL CITRATE INJ (*CRX) 100 MCG/2 ML VIAL IV PUSH (15:22)
--- NOTE | 2025-01-04 16:15 | PM.OBPRVD ---
OB - Vaginal Delivery Note Procedure Delivery date: 01/04/25 Induction method: AROM and Per Pitocin Protocol Delivery monitor: External FHT and Internal Uterine Route of delivery: Episiotomy description: None Laceration Description: Perineal - 1st Degree Specimen: No Quantitative Blood Loss (ml): 50 Anesthesia type: None Disposition: Floor Complications: No immediate complications
[2025-01-04] MEDS: OXYTOCIN 30 UNITS/NS 500 ML 30 UNITS/500 ML BAG 125 UNITS IV CONT (17:13)
[2025-01-04] MEDS: ACETAMINOPHEN 325 MG TABLET 650 MG PO (18:07)
[2025-01-04] MEDS: IBUPROFEN 600 MG TABLET PO (19:21)
[2025-01-05 00:49] VITALS: BP 126/77; PULSE 81; RESP 18; TEMP 36.5; O2SAT 95
[2025-01-05] MEDS: IBUPROFEN 600 MG TABLET PO ×4 (01:45→21:25)
[2025-01-05] MEDS: ACETAMINOPHEN 325 MG TABLET 650 MG PO ×4 (01:45→21:25)
[2025-01-05 05:35] LABS: Hematocrit 27.6 % (37.0-47.0); Hemoglobin 8.2 g/dL (12.0-15.0)
[2025-01-05] MEDS: POLYSACCHARIDE IRON COMPLEX 150 MG CAPSULE PO (08:02)
[2025-01-05] MEDS: DOCUSATE SODIUM 100 MG CAPSULE PO (08:02)
[2025-01-05] MEDS: MULTIVIT/MIN/PREN/FOL AC/IRON TABLET 1 TAB PO (08:02)
[2025-01-05 08:10] VITALS: BP 114/74; PULSE 87; RESP 18; TEMP 36.4; O2SAT 95
--- NOTE | 2025-01-05 08:24 | P.PNOB_ITS ---
OB - PN: Subj Subjective Date/time seen: 01/05/25 08:24 Patient comments: no complaints, pain well controlled, incisional pain, tolerating diet and flatus present OB - PN: Obj Data Labs 01/05/25 04:45 Labs: Laboratory Results - last 24 hr 01/05/25 04:45 Hgb 8.2 L Hct 27.6 L OB - PN A/P Plan day: 1 Plan: routine care Comments: No problems, routine care Time Spent With Patient Time: Total time spent is greater than 50% in coordination of care (as documented) at patient's floor/unit and/or counseling patient: Exam 2 Const: General: comfortable, no acute distress and alert Resp: Effort & Inspection: normal respiratory effort Auscultation: no crackles, no rales and no rhonchi Cardio: Rate: regular rate Heart sounds: no click, no murmurs and no rubs GI: Inspection: non-distended GI Palp: No Tenderness to palpation present (GI) Auscultation: normal bowel sounds Other: Incision - CDI Extrem: General: normal to inspection, no pedal edema and no calf tenderness
[2025-01-05 11:47] VITALS: BP 130/85; PULSE 113; RESP 16; TEMP 36.9; O2SAT 98
--- NOTE | 2025-01-05 15:47 | PC.NURSE ---
1400. Introductions were made, then consulted with patient to assess needs related to . Discussed with mother her plans to feed her infant and the experience so far Mom explains she plans to combo feed her , she reports she latches well to the R breast but struggles on the L breast. She is also supplementing with a bottle after some feedings per her preference, she reports that she supplements for the feedings she feels like baby doesn't get enough milk. We reviewed the process and how her body is capable of making enough for baby. Reviewed the different types of milk (1st milk and 2nd milk). Encouraged mother to express any questions or concerns she has regarding feedings. Advised her to call out for a latch check or if she needs assistance waking or positioning baby. Reviewed the blue feeding worksheet for required output and feeding at least 8-12 times every 24 hours. Resources provided for inpatient and outpatient services with the feeding sheet, mom/baby guide, and name/number written on the communication board. Mother voiced understanding of information and will call if there is a request for assistance. Reported to the Primary RN?
[2025-01-05 15:59] VITALS: BP 130/74; PULSE 90; RESP 18; TEMP 36.3
[2025-01-05 21:20] VITALS: BP 136/92; PULSE 99; RESP 18; TEMP 36.6; O2SAT 97
[2025-01-05] MEDS: WITCH HAZEL 40 PADS 1 PAD TOPICAL (21:25)
[2025-01-06] MEDS: ACETAMINOPHEN 325 MG TABLET 650 MG PO ×2 (04:05→09:42)
[2025-01-06] MEDS: IBUPROFEN 600 MG TABLET PO ×2 (04:05→09:43)
[2025-01-06 07:50] VITALS: BP 109/68; PULSE 83; RESP 16; TEMP 36.4; O2SAT 99
--- NOTE | 2025-01-06 08:31 | P.PNOB_ITS ---
OB - PN: Subj Subjective Date/time seen: 01/06/25 08:31 Patient comments: no complaints, pain well controlled and tolerating diet OB - PN: Obj Data Labs 01/05/25 04:45 OB - PN A/P Plan day: 2 Plan: routine care and discharge home Time Spent With Patient Time: Total time spent is greater than 50% in coordination of care (as documented) at patient's floor/unit and/or counseling patient: Exam 2 Const: General: comfortable and no acute distress Resp: Effort & Inspection: normal respiratory effort Auscultation: no rales, no rhonchi and no wheezes Cardio: Rate: regular rate Heart sounds: no click, no murmurs and no rubs GI: GI Palp: Yes Soft to palpation and No Tenderness to palpation present (GI) Auscultation: normal bowel sounds Extrem: General: normal to inspection, no pedal edema and no calf tenderness
--- NOTE | 2025-01-06 08:32 | P.DS_ITS ---
DS: Admitting Diagnosis Discharge Date 01/06/2025 Admitting Diagnosis Term DS: Discharge Diagnosis Discharge Diagnosis (1) Term delivered: Code(s): O80 - Encounter for full-term uncomplicated delivery Status: Acute OB - DS: Summary OB Procedures : None OB Procedures Intrapartum: Spontaneous Vag Delivery OB Procedures: : None Peripartum Data Laceration Description: Perineal - 1st Degree Episiotomy description: None Time Spent with Patient Time attestation: Total time spent providing and/or coordinating discharge services: Discharge Plan Discharge Discharging Clinician: Brian Smith Patient Disposition: Home Activity: pelvic rest Diet: regular Discharge Instructions: Education: Mom and Baby Guide Given to: Mother Follow-Up: Call your delivering provider's office for an appointment to be seen in: call for appt Mom and baby should come to the [facility] for the follow-up appointment. Appointment Date/Time: January 07, 2025 at 10:00 am What to expect at your follow-up visit: Blood Pressure Check Physical Assessment Call [phone] if you are unable to keep your appointment time. BREAST CARE: * Wear a snug supportive bra. * For engorgement discomfort: Breast Feeding: * Apply warm moist washcloths * Express milk as needed to relieve engorgement * Wear loose clothing Bottle Feeding: * May apply ice packs * For sore nipples: * Identify correct latch-on * Apply warm moist washcloths before and after nursing * Air dry nipples after nursing * May apply Lansinoh cream to nipples EPISIOTOMY/PERINEAL CARE: * Until bleeding stops, use your trinity bottle after urinating * Change your pad frequently throughout the day * You may take sitz baths several times a day (fill your bathtub with warm water and soak for 20 minutes.) Do NOT bathe in the water * No tub baths until seen by your physician - You may shower ACTIVITY: * Rest as much as possible. * Do not exercise or lift anything heavier than your baby (such as laundry or other children.) * Avoid stairs or driving as much as possible. * Do not put anything into the vagina. No douching, tampons, or sexual activity until seen by physician. NOTIFY PHYSICIAN IF YOU HAVE ANY QUESTIONS OR IF ANY OF THE FOLLOWING SYMPTOMS OCCUR: * If your episiotomy or incision becomes red, swollen, or more painful than what you have experienced in the hospital. * If your vaginal bleeding becomes foul smelling. * If your vaginal bleeding becomes more heavy than a period or if your bleeding changes from pink to bright red. However, you may pass an occasional walnut- sized clot once or twice for the first week . * If you experience a sharp, shooting pain in you calves. * If you discover a hard, reddened area on your breast or if you experience flu- like symptoms. DIET: * Eat regular, well-balanced meals. * Drink plenty of fluids daily. If , drink to thirst. Patient Instructions: Antibiotic Form Patient Language: Colombian Stand Alone Forms: General Discharge Information Follow-up/Referrals: Brian Smith MD [Physician] - Discharge Medications: Continued ondansetron 4 mg tablet,disintegrating 4 mg PO Q8H PRN (Reason: nausea and vomiting) Qty: 20 0RF PNV [id number] fumarate-FA [] 28 mg iron- 800 mcg tablet 1 tablet PO DAILY Date of admission: 01/04/25 04:49 Primary Care Provider: Bisi Whiteside Admitting Provider: Brian Smith Attending physician on admission: Brian Smith Condition: Stable
[2025-01-06] MEDS: POLYSACCHARIDE IRON COMPLEX 150 MG CAPSULE PO (09:42)
[2025-01-06] MEDS: DOCUSATE SODIUM 100 MG CAPSULE PO (09:42)
[2025-01-06] MEDS: MULTIVIT/MIN/PREN/FOL AC/IRON TABLET 1 TAB PO (09:42)
--- NOTE | 2025-01-06 11:00 | PC.NURSE ---
Consulted with mother concerning needs and she shared her ability to independently latch infant optimally without pain. Mother is feeding appropriately for growth of and understands stimulating to eat if needed. She is breast and bottle feeding. Encouraged pumping at any feeds when baby does not breastfed. has had appropriate feedings in the last 24 hours meets the outcomes for weight, output, blood sugar and jaundice at this time. Reinforced understanding of signs of adequate intake, transition of stool, prevention/relief of engorgement, plugged ducts, mastitis, community resources (has a [facility] appointment scheduled), and when to call a provider using the resource of the feeding sheet along with the mom and baby guide. She has a breast pump for home use. Mother voiced understanding of the information shared, is confident to continue effectively her at home, when to call for assistance, denies any additional assistance or education at this time. Reported to the Primary RN.
[2025-01-07 10:18] VITALS: BP 123/86; PULSE 90; RESP 18; TEMP 37; O2SAT 98
== END 2025-01-06 11:53 | disposition home or self-care (01) | DRG 560 ==
LOC: ANHLDR 04:53 → ANHOB2 19:19
PROVIDERS: Admitting Provider Obstetrics & Gynecology; PCP Nurse Practitioner Family; Visit Provider Obstetrics & Gynecology
DX: O70.0 First degree perineal laceration during delivery (principal); O62.3 Precipitate labor; Z3A.39 39 weeks gestation of pregnancy; Z37.0 Single live birth
CPT/HCPCS: 36415; 85014; 85018; 85025; 86593; 86703; 86850; 86900; 86901; A9270; G0432; J2590; J3010; J7120